=== PATIENT | female | born 2005 | race Caucasian/White ===

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

== ENCOUNTER 2024-01-01 07:00 | Outpatient (OUT) | payer OTHER, SELFPAY ==
--- NOTE | 2024-01-01 | US_ITS ---
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 Single live intrauterine with growth detailed above. Electronically authenticated by: KATIE YANEZ Date: 01/01/2024 10:19
--- NOTE | 2024-01-01 | US_ITS ---
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 BREATHING MOVEMENTS: 2 GROSS BODY MOVEMENTS: 2 TONE: 2 QUALITATIVE AMNIOTIC FLUID VOLUME: 2 PRESENTATION: CEPHALIC HEART RATE: 148.35 bpm AMNIOTIC FLUID VOLUME: 14.62 cm GESTATIONAL AGE: 38 weeks 2 days US/US OB BPP w non-stress IMPRESSION: Total biophysical profile score: 8 Electronically authenticated by: KATIE YANEZ Date: 01/01/2024 10:13
--- OUTSIDE RECORDS SUMMARY | 2024-01-01 07:03 | XMS_ITS | CCD ---
Author Organization [facility] Care Team Providers Care Cardroom Plastic Card Grader Name Role Phone Keegan, Shahnaz Rach Unavailable Unavailable Keegan, Shahnaz Rach Unavailable Unavailable Keegan, Shahnaz Rach Unavailable Unavailable Keegan, Shahnaz Rach Unavailable Unavailable Keegan, Shahnaz Rach Unavailable Unavailable Keegan, Shahnaz Rach Unavailable Unavailable Keegan, Shahnaz A Unavailable Unavailable Keegan, Shahnaz A Unavailable Unavailable RIMA Solomon Primary Care Provider JOHNOSN Caceres Emergency Provider Hue Solomon Primary Care [...] Facility (3 sources) Octacosanol Drug Allergy 08-13-2022 [facility] Work Phone: Medications Current Medications Medication Drug Class(es) Dates Sig (Normalized) Sig (Original) multivitamin (Theragran) tablet (3 sources) take 1 tablet by mouth in the morning multivitamin (Theragran) tablet Take 1 tablet by mouth in the morning. Active Shubert (No Known Home Meds) (1 source) Start: 07-17-2023 Shubert (No Known Home Meds) Active July 17, [...] UA Negative Negative - 4(70) +++ mg/dL [facility] Blood, UA Negative Negative - 50 Jason/mcL [facility] Clarity, UA Clear [facility] Color, UA Yellow [facility] Glucose, UA Negative Negative - 1999(110) ++++ mg/dL [facility] Interpretation and review of laboratory results Abnormal [facility] Ketones, UA Negative Negative - 160(16) ++++ mg/dL [facility] Leukocytes, UA Negative Negative - 500+++ Misbah/mcL [facility] Nitrite, UA Negative Negative - Positive [facility] pH, UA 5.5 5 - 9 [facility] Protein, UA Trace Negative - 1999(20) ++++ mg/dL [facility] Spec Grav, UA 1.020 1 - 1.03 [facility] Urobilinogen, UA 1.0 0.2 - 12 mg/dL [facility] Alanine aminotransferase [En zymatic activity/volume] in Serum or PlasmaOrdered By: Fili Caceres on 07-17-2023 ALT [Catalytic activity/Vol] 9 U/L Normal 7-52 [facility] Comment on above: Performed By: #### C K, CBC, HS TROP, CMP #### [facility] [address] [place] [address] [place] Albumin [Mass/volume] in Ser um or Plasma by Bromocresol green (BCG) dye binding methoOrdered By: Fili Caceres on 07-17-2023 Albumin BCG dye [Mass/Vol] 4.4 g/dL 3.5-5.7 [facility] Alkaline phosphatase [Enzyma tic activity/volume] in Serum or PlasmaOrdered By: Fili Caceres on 07-17-2023 ALP [Catalytic activity/Vol] 61 U/L Normal 34-104 [facility] Comment on above: Performed By: #### C K, CBC, HS TROP, CMP #### [facility] [address] [place] [address] [place] Aspartate aminotransferase [ Enzymatic activity/volume] in Serum or PlasmaOrdered By: Fili Caceres on 07-17-2023 AST [Catalytic activity/Vol] 17 U/L Normal 13-39 [facility] Comment on above: Performed By: #### C K, CBC, HS TROP, CMP #### [address] Automated basophil %Ordered By: Fili Caceres on 07-17-2023 Basophils/100 WBC (Bld) 0.8 % Normal . [facility] Comment on above: Performed By: #### C K, CBC, HS TROP, CMP #### [address] Automated basophil countOrde red By: Fili Caceres on 07-17-2023 Basophils (Bld) [#/Vol] 0.1 10*3/uL Normal 0.0-0.2 [facility] Comment on above: Result Comment: PERF ORMED BY: [place] [address] PATHOLOGIST STATION EXAMINER VANCE OSEGUERA M.D. Performed By: #### C K, CBC, HS TROP, CMP #### [address] Automated blood monocyte cou ntOrdered By: Fili Caceres on 07-17-2023 Monocytes (Bld) [#/Vol] 0.7 10*3/uL Normal 0.0-0.8 [facility] Comment on above: Performed By: #### C K, CBC, HS TROP, CMP #### [address] Automated eosinophil %Ordere d By: Fili Caceres on 07-17-2023 Eosinophils/100 WBC (Bld) 0.6 % Normal . [facility] Comment on above: Performed By: #### C K, CBC, HS TROP, CMP #### [address] Automated eosinophil countOr dered By: Fili Caceres on 07-17-2023 Eosinophils (Bld) [#/Vol] 0.1 10*3/uL Normal 0.0-0.45 [facility] Comment on above: Performed By: #### C K, CBC, HS TROP, CMP #### [facility] [address] Automated erythrocytes count in urine sediment (number/area)Ordered By: Fili Caceres on 07-17-2023 RBC Auto (Urine sed) [#/Area] None seen [HPF] 0-4 [facility] Automated leukocytes count i n urine sediment (number/area)Ordered By: Fili Caceres on 07-17-2023 WBC Auto (Urine sed) [#/Area] 1-2 [HPF] 0-4 [facility] Automated monocyte %Ordered By: Fili Caceres on 07-17-2023 Monocytes/100 WBC (Bld) 7.4 % Normal . [facility] Comment on above: Performed By: #### C K, CBC, HS TROP, CMP #### [address] Automated neutrophil %Ordere d By: Fili Caceres on 07-17-2023 Neutrophils/100 WBC (Bld) 76.4 % Normal . [facility] Comment on above: Performed By: #### C K, CBC, HS TROP, CMP #### [address] Automated urine color determ inationOrdered By: Fili Caceres on 07-17-2023 Color (U) Yellow Normal Yellow [facility] Comment on above: Order Comment: Name Collection Type:: Clean-Voided Midstream Performed By: #### A DDONUAPLUS #### [address] Bilirubin Test strip Ql (U)O rdered By: Fili Caceres on 07-17-2023 Bilirubin Ql (U) Negative Negative [facility] Bilirubin.total [Mass/volume ] in Serum or PlasmaOrdered By: Fili Caceres on 07-17-2023 Bilirubin [Mass/Vol] 0.5 mg/dL Normal 0.3-1.0 [facility] [place] Comment on above: Performed By: #### C K, CBC, HS TROP, CMP #### [address] Calcium [Mass/volume] in Ser um or PlasmaOrdered By: Fili Caceres on 07-17-2023 Calcium [Mass/Vol] 9.2 mg/dL Normal 8.6-10.3 [facility] Comment on above: Performed By: #### C K, CBC, HS TROP, CMP #### [address] Capillary blood glucose adeel urement by glucometer (mass/volume)Ordered By: Fili Caceres on 07-17-2023 Glucose [Mass/Vol] 88 mg/dL Normal [facility] Comment on above: Random Glucose Refer ence Range is dependent on time and content of last meal. Glucose of more than 200 mg/dL in a nonstressed, ambulatory subject supports the diagnosis of Diabetes Mellitus. Result Comment: Lucas om Glucose Reference Range is dependent on time and content of last meal. Glucose of more than 200 mg/dL in a nonstressed, ambulatory subject supports the diagnosis of Diabetes Mellitus. PERFORMED BY: [address] [place] [address] PATHOLOGIST STATION EXAMINER VANCE OSGEUERA M.D. Performed By: #### G SAWYER #### Point of Care testing , Carbon dioxide, total [Moles /volume] in Serum or PlasmaOrdered By: Fili Caceres on 07-17-2023 CO2 [Moles/Vol] 25.4 mmol/L Normal 21.0-31.0 [facility] Comment on above: Performed By: #### C K, CBC, HS TROP, CMP #### [address] Chloride [Moles/volume] in S rose or PlasmaOrdered By: Fili Caceres on 07-17-2023 Chloride [Moles/Vol] 102 mmol/L Normal 98-107 [facility] [place] Comment on above: Performed By: #### C K, CBC, HS TROP, CMP #### [address] Complete Blood Count Auto Di ffon 07-17-2023 Mean Corpuscular HGB Conc 33.8 g/dL Normal 32.0-35.0 [facility] Comment on above: Performed By: #### C K, CBC, HS TROP, CMP #### [address] Monocytes/100 WBC (Bld) 16.93 % Normal 0.00-20.00 [facility] Comment on above: Performed By: #### C K, CBC, HS TROP, CMP #### [address] NRBC% 0.1 /100{WBC} Normal 0-0.5 [facility] Comment on above: Performed By: #### C K, CBC, HS TROP, CMP #### [address] Comprehensive Metabolic Pane jayce 07-17-2023 Albumin [Mass/Vol] 4.4 g/dL Normal 3.5-5.7 [facility] Comment on above: Performed By: #### C K, CBC, HS TROP, CMP #### [address] Creatinine Clr Calc Pharmacy 118.28 Normal [facility] Comment on above: Result Comment: PERF ORMED BY: [place] [address] PATHOLOGIST STATION EXAMINER VANCE OSEGUERA M.D. Performed By: #### C K, CBC, HS TROP, CMP #### [address] GFR/1.73 sq M.predicted MDRD (S/P/Bld) [Vol rate/Area] mL/min/{1.73_m2} Normal [facility] Comment on above: Performed By: #### C K, CBC, HS TROP, CMP #### [address] Creatine kinase [Enzymatic a ctivity/volume] in Serum or PlasmaOrdered By: Fili Caceres on 07-17-2023 CK [Catalytic activity/Vol] 55 U/L Normal 30-223 [facility] Comment on above: Performed By: #### C K, CBC, HS TROP, CMP #### [facility] [address] [place] [address] [place] Creatinine [Mass/volume] in Serum or PlasmaOrdered By: Fili Caceres on 07-17-2023 Creatinine [Mass/Vol] 0.63 mg/dL Normal 0.60-1.20 [facility] Comment on above: Performed By: #### C K, CBC, HS TROP, CMP #### [place] [address] [place] Dipstick and Microscopicon 0 07-17-2023 Appearance (U) Clear Normal Clear [facility] Comment on above: Order Comment: Name Collection Type:: Clean-Voided Midstream Performed By: #### A DDONUAPLUS #### [place] [address] [place] Bacteria,Urine None Seen Normal None Seen [facility] Comment on above: Order Comment: Name Collection Type:: Clean-Voided Midstream Performed By: #### A DDONUAPLUS #### [place] [address] [place] Bilirubin,Urine Negative Normal Negative [facility] Comment on above: Order Comment: Name Collection Type:: Clean-Voided Midstream Performed By: #### A DDONUAPLUS #### [address] Glucose Ql (U) Normal Normal Normal [facility] Comment on above: Order Comment: Name Collection Type:: Clean-Voided Midstream Performed By: #### A DDONUAPLUS #### [place] [address] [place] Hyaline Casts,Urine 0-8 Normal 0-8 [facility] Comment on above: Order Comment: Name Collection Type:: Clean-Voided Midstream Result Comment: PERF ORMED BY: [place] [address] PATHOLOGIST STATION EXAMINER VANCE OSEGUERA M.D. Performed By: #### A DDONUAPLUS #### [place] [address] [place] Ketones Ql (U) Negative Normal Negative [facility] Comment on above: Order Comment: Name Collection Type:: Clean-Voided Midstream Performed By: #### A DDONUAPLUS #### [address] Leukocyte esterase Test strip Ql (U) 1+ High Negative [facility] Comment on above: Order Comment: Name Collection Type:: Clean-Voided Midstream Performed By: #### A DDONUAPLUS #### [place] [address] [place] Nitrite,Urine Negative Normal Negative [facility] Comment on above: Order Comment: Name Collection Type:: Clean-Voided Midstream Performed By: #### A DDONUAPLUS #### [address] Occult Blood,Urine Negative Normal Negative [facility] Comment on above: Order Comment: Name Collection Type:: Clean-Voided Midstream Result Comment: PERF ORMED BY: [place] [address] PATHOLOGIST STATION EXAMINER VANCE OSEGUERA M.D. Performed By: #### A DDONUAPLUS #### [place] [address] [place] Protein,Urine Negative Normal Negative [facility] Comment on above: Order Comment: Name Collection Type:: Clean-Voided Midstream Performed By: #### A DDONUAPLUS #### [place] [address] [place] RBC,Urine None Seen Normal 0-4 [facility] Comment on above: Order Comment: Name Collection Type:: Clean-Voided Midstream Performed By: #### A DDONUAPLUS #### [place] [address] [place] Specificy [place],Urine 1.016 Normal 1.001-1.030 [facility] Comment on above: Order Comment: Name Collection Type:: Clean-Voided Midstream Performed By: #### A DDONUAPLUS #### [place] [id number] [place] Squamous Epithelial Cell,Urine 3-4 High 0-2 [facility] Comment on above: Order Comment: Name Collection Type:: Clean-Voided Midstream Performed By: #### A DDONUAPLUS #### [facility] [address] [place] [address] Urobilinogen,Urine Normal Normal Normal [facility] Comment on above: Order Comment: Name Collection Type:: Clean-Voided Midstream Performed By: #### A DDONUAPLUS #### [facility] [address] [place] [address] WBC,Urine 1-2 Normal 0-4 [facility] Comment on above: Order Comment: Name Collection Type:: Clean-Voided Midstream Performed By: #### A DDONUAPLUS #### [address] ECG 12 lead ECGon 07-17-2023 ECG 12 lead ECG [facility] [place] [address] [place] [address] Electrocardiograph Report Signed Patient: Zuleyma Khan MR#: [id number] : 2005 Acct:[id number] Age/Sex: 18 / F ADM Date: 07/17/23 Loc: ER Room: Type: [facility] ER Attending Dr: Ordering Provider: [...] Confirmed by Santi DE LOS SANTOS DO ([id number]) on 07/17/2023 1:21:27 PM Referred By: Electronically Signed By:Santi DE LOS SANTOS DO Transcribed By: MUS Signed By Santi De Los Santos DO 0 07/17/23 1321 Normal [facility] Erythrocyte distribution wid th [Ratio] by Automated countOrdered By: Fiil Caceres on 07-17-2023 Erythrocyte distribution width (RBC) [Ratio] 14.8 % Normal 11.9-15.3 [facility] Comment on above: Performed By: #### C K, CBC, HS TROP, CMP #### [facility] [address] Erythrocytes [#/volume] in B lood by Automated countOrdered By: Fili Caceres on 07-17-2023 RBC (Bld) [#/Vol] 4.43 10*6/uL Normal 3.60-5.00 [facility] Comment on above: Performed By: #### C K, CBC, HS TROP, CMP #### [facility] [address] Glucose [Mass/volume] in Ser um or PlasmaOrdered By: Fili Caceres on 07-17-2023 Glucose [Mass/Vol] 59 mg/dL Low 70-100 [facility] Comment on above: ADA recommended refe rence rangeRandom Glucose Reference Range is dependent on time and content of last meal. Glucose of more than 200 mg/dL in a nonstressed, ambulatory subject supports the diagnosis of Diabetes Mellitus. Result Comment: Lucas om Glucose Reference Range is dependent on time and content of last meal. Glucose of more than 200 mg/dL in a nonstressed, ambulatory subject supports the diagnosis of Diabetes Mellitus. ADA recommended reference range Performed By: #### C K, CBC, HS TROP, CMP #### [facility] [address] [place] [address] [place] Hematocrit [Volume Fraction] of Blood by Automated countOrdered By: Fili Caceres on 07-17-2023 Hematocrit (Bld) [Volume fraction] 37.8 % Normal 34.0-46.4 [facility] Comment on above: Performed By: #### C K, CBC, HS TROP, CMP #### [facility] [address] [place] [address] [place] Hemoglobin [Mass/volume] in BloodOrdered By: Fili Caceres on 07-17-2023 Hemoglobin (Bld) [Mass/Vol] 12.8 g/dL Normal 11.8-15.4 [facility] Comment on above: Performed By: #### C K, CBC, HS TROP, CMP #### [facility] [address] Ketones Auto test strip (U) [Mass/Vol]Ordered By: Fili Caceres on 07-17-2023 Ketones (U) [Mass/Vol] Negative Negative [facility] - UrinalysisOrder ed By: Fili Caceres on 07-17-2023 Hyaline casts LM Ql (Urine sed) 0-8 [LPF] 0-8 [facility] Leukocytes [#/volume] correc luis f for nucleated erythrocytes in Blood by Automated counOrdered By: Fili Caceres on 07-17-2023 WBC corrected for nucl RBC Auto (Bld) [#/Vol] 8.8 10*3/uL 3.8-11.6 [facility] Leukocytes [#/volume] in Blo od by Automated countOrdered By: Fili Caceres on 07-17-2023 WBC (Bld) [#/Vol] 8.8 10*3/uL Normal 3.8-11.6 [facility] Comment on above: Performed By: #### C K, CBC, HS TROP, CMP #### [facility] [address] [place] [address] [place] Lymphocytes [#/volume] in Bl ood by Automated countOrdered By: Fili Caceres on 07-17-2023 Lymphocytes (Bld) [#/Vol] 1.3 10*3/uL Normal 1.00-4.8 [facility] Comment on above: Performed By: #### C K, CBC, HS TROP, CMP #### [facility] [address] [place] [address] [place] Lymphocytes/100 leukocytes i n Blood by Automated countOrdered By: Fili Caceres on 07-17-2023 Lymphocytes/100 WBC (Bld) 14.8 % Normal . [facility] Comment on above: Performed By: #### C K, CBC, HS TROP, CMP #### [facility] [address] [place] [address] [place] MCH [Entitic mass] by Automa luis f countOrdered By: Fili Caceres on 07-17-2023 MCH (RBC) [Entitic mass] 28.8 pg Normal 24.7-34.3 [facility] Comment on above: Performed By: #### C K, CBC, HS TROP, CMP #### [facility] [address] [place] [address] MCHC Auto (RBC) [Mass/Vol]Or dered By: Fili Caceres on 07-17-2023 MCHC (RBC) [Mass/Vol] 33.8 g/dL 32.0-35.0 [facility] MCV [Entitic volume] by Auto mated countOrdered By: Fili Caceres on 07-17-2023 MCV (RBC) [Entitic vol] 85.4 fL Normal 80-100 [facility] Comment on above: Performed By: #### C K, CBC, HS TROP, CMP #### [facility] [address] [place] [address] Monocyte distribution width [Entitic volume] in Blood by AutomatedOrdered By: Fili Caceres on 07-17-2023 Monocyte distribution width Auto (Bld) [Entitic vol] 16.93 % 0.00-20.00 [facility] Neutrophils [#/volume] in Bl ood by Automated countOrdered By: Fili Ccaeres on 07-17-2023 Neutrophils (Bld) [#/Vol] 6.7 10*3/uL Normal 1.8-7.7 [facility] Comment on above: Performed By: #### C K, CBC, HS TROP, CMP #### [facility] [address] [place] [address] Nitrite Test strip Ql (U)Ord ered By: Fili Caceres on 07-17-2023 Nitrite Ql (U) Negative Negative [facility] No Panel InformationOrdered By: Fili Caceres on 07-17-2023 Estimated GFR (CKD-EPI) > 60.0 mL/Min [facility] Creatinine Clearance (Chem 118.28 [facility] Nucleated erythrocytes [Pres ence] in Blood by Automated countOrdered By: Fili Caceres on 07-17-2023 Nucleated RBC Auto Ql (Bld) 0.1 /100{WBC} 0-0.5 [facility] Platelet mean volume [Entiti c volume] in Blood by Automated countOrdered By: Fili Caceres on 07-17-2023 Platelet mean volume (Bld) [Entitic vol] 9.3 fL Normal 6.3-10.7 [facility] Comment on above: Performed By: #### C K, CBC, HS TROP, CMP #### [facility] [address] Platelets [#/volume] in Bloo d by Automated countOrdered By: Fili Caceres on 07-17-2023 Platelets (Bld) [#/Vol] 234 10*3/uL Normal 150-450 [facility] Comment on above: Performed By: #### C K, CBC, HS TROP, CMP #### [address] Potassium [Moles/volume] in Serum or PlasmaOrdered By: Fili Caceres on 07-17-2023 Potassium [Moles/Vol] 3.6 mmol/L Normal 3.5-5.1 [facility] Comment on above: Performed By: #### C K, CBC, HS TROP, CMP #### [address] Protein Auto test strip (U) [Mass/Vol]Ordered By: Fili Caceres on 07-17-2023 Protein (U) [Mass/Vol] Negative Negative [facility] Protein [Mass/volume] in Ser um or PlasmaOrdered By: Fili Caceres on 07-17-2023 Protein [Mass/Vol] 7.0 g/dL Normal 6.4-8.9 [facility] Comment on above: Performed By: #### C K, CBC, HS TROP, CMP #### [address] Serum globulin measurement b y calculation (mass/volume)Ordered By: Fili Caceres on 07-17-2023 Globulin (S) [Mass/Vol] 2.6 g/dL Normal [facility] Comment on above: Performed By: #### C K, CBC, HS TROP, CMP #### [place] [address] [place] Serum or plasma albumin/glob ulin mass ratioOrdered By: Fili Caceres on 07-17-2023 Albumin/Globulin [Mass ratio] 1.7 {ratio} Normal [facility] Comment on above: Performed By: #### C K, CBC, HS TROP, CMP #### [facility] [address] [place] [address] Serum or plasma anion gap de terminationOrdered By: Fili Caceres on 07-17-2023 Anion gap [Moles/Vol] 10.2 mmol/L Normal 6.0-15.0 [facility] Comment on above: Performed By: #### C K, CBC, HS TROP, CMP #### [address] Sodium [Moles/volume] in Ser um or PlasmaOrdered By: Fili Caceres on 07-17-2023 Sodium [Moles/Vol] 134 mmol/L Low 136-145 [facility] Comment on above: Performed By: #### C K, CBC, HS TROP, CMP #### [facility] [address] [place] [address] Specific gravity Auto test s trip (U) [Rel density]Ordered By: Fili Caceres on 07-17-2023 Specific gravity (U) [Rel density] 1.016 1.001-1.030 [facility] Squamous epithelial cells de tection in urine sediment by light microscopyOrdered By: Fili Caceres on 07-17-2023 Epithelial cells.squamous LM Ql (Urine sed) 3-4 [HPF] 0-2 [facility] Troponin I High Sensitivityo n 07-17-2023 Troponin I High Sensitivity < 2.3 Normal 0.0-15.0 [facility] Comment on above: Result Comment: PERF ORMED BY: [place] [address] PATHOLOGIST STATION EXAMINER VANCE OSEGUERA M.D. Performed By: #### C K, CBC, HS TROP, CMP #### [facility] [address] [place] [address] Troponin I.cardiac [Mass/vol ume] in Serum or Plasma by Detection limit <= 0.01 ng/Ordered By: Fili Caceres on 07-17-2023 Troponin I.cardiac DL <= 0.01 ng/mL [Mass/Vol] < 2.3 pg/mL 0.0-15.0 [facility] Urea nitrogen [Mass/volume] in Serum or PlasmaOrdered By: Fili Caceres on 07-17-2023 Urea nitrogen [Mass/Vol] 10 mg/dL Normal 7-25 [facility] Comment on above: Performed By: #### C K, CBC, HS TROP, CMP #### [facility] [address] Urine bacteria detection by automated methodOrdered By: Fili Caceres on 07-17-2023 Bacteria Auto Ql (U) None seen None Seen [facility] Urine clarity by refractomet ry automatedOrdered By: Fili Caceres on 07-17-2023 Clarity Refractometry automated (U) Clear Clear [facility] Urine glucose measurement by automated test strip (mass/volume)Ordered By: Fili Caceres on 07-17-2023 Glucose Auto test strip (U) [Mass/Vol] Normal mg/dL Normal [facility] Urine hemoglobin detection b y automated test stripOrdered By: Fili Caceres on 07-17-2023 Hemoglobin Auto test strip Ql (U) Negative Negative [facility] Urine leukocyte esterase det ection by automated test stripOrdered By: Fili Caceres on 07-17-2023 Leukocyte esterase Auto test strip Ql (U) 1+ Negative [facility] Urine pH measurement by auto mated test stripOrdered By: Fili Caceres on 07-17-2023 pH (U) 7.0 [pH] Normal 5.0-9.0 [facility] Comment on above: Order Comment: Name Collection Type:: Clean-Voided Midstream Performed By: #### A DDONUAPLUS #### [facility] C[facility] [address] [place] [address] [place] Urobilinogen Auto test strip (U) [Mass/Vol]Ordered By: Fili Caceres on 07-17-2023 Urobilinogen (U) [Mass/Vol] Normal mg/dL Normal [facility] Vital Signs Date Time Vital Sign Value Performing Clinician Facility 12-24-2023 10:24-0400 Body mass index (BMI) [Ratio] 26.91 kg/m2 Connie Gildardo DO Work Phone: [facility] 12-24-2023 10:24-0400 Body weight 71.12 kg Connie Gildardo DO Work Phone: [facility] 12-24-2023 10:24-0400 Diastolic blood pressure 72 mm[Hg] Connie Gildardo DO Work Phone: [facility] 12-24-2023 10:24-0400 Systolic blood pressure 110 mm[Hg] Connie Gildardo DO Work Phone: [facility] 07-17-2023 12:32-0400 Diastolic blood pressure 73 mm[Hg] [employer] Hue Luby Work Phone: [facility] 07-17-2023 12:32-0400 Heart rate 83 /min [employer] Hue Luby Work Phone: [facility] 07-17-2023 12:32-0400 Respiratory rate 18 /min [employer] Hue Luby Work Phone: [phone] 07-17-2023 12:32-0400 SaO2% (BldA) [Mass fraction] 100 % [employer] Hue Luby Work Phone: [facility] 07-17-2023 12:32-0400 Systolic blood pressure 118 mm[Hg] [employer] Hue Luby Work Phone: [facility] 07-17-2023 10:32-0400 Body height 162.56 cm [employer] Hue Luby Work Phone: [facility] 07-17-2023 10:32-0400 Body temperature 98 [degF] [employer] Hue Luby Work Phone: [facility] 07-17-2023 10:32-0400 Body weight 52.16 kg [employer] Hue Luby Work Phone: [facility] Encounters Encounter Date Encounter Type [...] 07-17-2023 End: 07-17-2023 Emergency department patient visit [employer]-Kirstin Solomon Work Phone: [facility] Work Phone: Start: 06-24-2023 End: [...] Start: 12-24-2017 Patient encounter procedure Shahnaz Keegan [facility] Work Phone: Start: 05-21-2017 Patient encounter procedure Shahnaz Keegan [facility] Work Phone: Start: 05-21-2017 Ambulatory Shahnaz Rach Keegan Faci lity:[phone] Start: 02-19-2017 Patient encounter procedure Shahnaz Keegan MIGUEL ANGEL[facility] Work Phone: Start: 02-19-2017 Ambulatory Shahnaz Rach Keegan Faci lity:[phone] Start: 01-14-2017 Patient encounter procedure Shahnaz Keegan [facility] Work Phone: Procedures Date Procedure Procedure Detail Performing Clinician Start: 12-24-2023 Urnls dip stick/tabl et rgnt non-auto w/o micrscp Connie [employer] Work Phone: History of Bronchosc opy (Diagnostic) Shahnaz Keegan Plan of Treatment Date Care Activity Detail Author Start: 11-24-2023 Influenza vaccination Influenza Vacc ine (#1) [facility] Patient Education Syncope (faint ing) Low Blood Sugar, Adult ED [facility] Work Phone: Patient referral [facility] Work Phone: Immunizations Immunization Date Immunization Notes Care Provider [facility] 12-04-2021 meningococcal polysaccharide (groups A, C, Y and W-135) diphtheria toxoid conjugate vaccine (MCV4P) [facility] DO Work Phone: [facility] 10-22-2019 Human Papillomavirus 9-valent vaccine; Translations: [HPV, Human Papillomavirus 9-valent vaccine] [place] Keegan [facility] Work Phone: 01-12-2016 human papilloma viru s vaccine, quadrivalent [place] Keegan [facility] Work Phone: 01-12-2016 Human Papillomavirus 9-valent vaccine Connie Gildardo DO Work Phone: [facility] 01-12-2016 meningococcal polysaccharide (groups A, C, Y and W-135) diphtheria toxoid conjugate vaccine (MCV4P) [place] Keegan [facility] Work Phone: 01-12-2016 tetanus toxoid, redu shoshana diphtheria toxoid, and acellular pertussis vaccine, adsorbed [place] Keegan [facility] Work Phone: 01-10-2010 influenza, seasonal, injectable Shahnaz Keegan [facility] Work Phone: 01-10-2010 influenza, seasonal, injectable, preservative free [facility]: [facility] 01-10-2010 influenza virus vaccine, unspecified formulation [facility] Work Phone: [facility] 08-09-2009 diphtheria, tetanus toxoids and acellular pertussis vaccine Shahnaz Keegan [facility] 08-09-2009 measles, mumps and rubella virus vaccine Shahnaz Keegan [facility] 08-09-2009 poliovirus vaccine, inactivated Shahnaz Keegan [facility] 08-09-2009 varicella virus vaccine Shahnaz Vac ca [facility] 03-21-2009 novel [id number], injectable Connie Gildardo DO Work Phone: [facility] 03-21-2009 novel [id number], preservative-free, injectable Connie Gildardo DO Work Phone: [facility] 02-10-2009 hepatitis A vaccine, pediatric/adolescent dosage, 2 dose schedule Connie Gildardo DO Work Phone: [facility] 02-10-2009 hepatitis A vaccine, unspecified formulation Shahnaz Keegan [facility] Work Phone: 02-10-2009 influenza, seasonal, injectable Shahnaz Keegan [facility] Work Phone: 02-10-2009 novel [id number], injectable Connie Gildardo DO Work Phone: [facility] 02-10-2009 novel [id number], preservative-free, injectable Connie Gildardo DO Work Phone: [facility] 07-27-2008 hepatitis A vaccine, pediatric/adolescent dosage, 2 dose schedule Connie Gildrado DO Work Phone: [facility] 07-23-2008 hepatitis A vaccine, unspecified formulation Shahnaz Keegan [facility] Work Phone: 12-26-2007 influenza, seasonal, injectable Shahnaz Ke[facility] Work Phone: 12-26-2007 influenza, seasonal, injectable, preservative free Connie Gildardo DO Work Phone: [facility] 01-21-2007 influenza, seasonal, injectable Shahnaz Keegan [facility] Work Phone: 01-21-2007 influenza, seasonal, injectable, preservative free Connie Gildardo DO Work Phone: [facility] 02-05-2006 influenza, seasonal, injectable Shhanaz Keegan [facility] Work Phone: 02-05-2006 influenza, seasonal, injectable, preservative free Connie Gildardo DO Work Phone: [facility] 11-02-2005 diphtheria, tetanus toxoids and acellular pertussis vaccine Shahnaz Keegan [facility] 11-02-2005 haemophilus influenz ae type b vaccine, PRP-OMP conjugate Shahnaz Keegan [facility] Work Phone: 11-02-2005 haemophilus influenz ae type b vaccine, PRP-T conjugate Connie Gildardo DO Work Phone: [facility] 11-02-2005 pneumococcal conjuga te vaccine, 7 valent Shahnaz Keegan [facility] 07-10-2005 measles, mumps and rubella virus vaccine Shahnaz Keegan [facility] 07-10-2005 varicella virus vaccine Shahnaz Vac ca [facility] 01-24-2005 diphtheria, tetanus toxoids and acellular pertussis vaccine Shahnaz Keegan [facility] Work Phone: 01-24-2005 DTaP-hepatitis B and poliovirus vaccine [facility]: [facility] 01-24-2005 haemophilus influenz ae type b vaccine, PRP-OMP conjugate Shahnaz Keegan [facility] Work Phone: 01-24-2005 haemophilus influenz ae type b vaccine, PRP-T conjugate [facility] DO Work Phone: [facility] 01-24-2005 hepatitis B vaccine, adult dosage Shahnaz Keegan [facility] Work Phone: 01-24-2005 pneumococcal conjuga te vaccine, 7 valent Shahnaz Keegan [facility] 01-24-2005 poliovirus vaccine, inactivated Shahnaz Keegan [facility] Work Phone: 2004 diphtheria, tetanus toxoids and acellular pertussis vaccine Shahnaz Keegan [facility] Work Phone: 2004 DTaP-hepatitis B and poliovirus vaccine [facility] DO Work Phone: [facility] 2004 haemophilus influenz ae type b vaccine, PRP-OMP conjugate Shahnaz Keegan [facility] Work Phone: 2004 haemophilus influenz ae type b vaccine, PRP-T conjugate [facility] Work Phone: [facility] 2004 hepatitis B vaccine, pediatric or pediatric/adolescent dosage Connie [facility] DO Work Phone: [facility] 2004 pneumococcal conjuga te vaccine, 7 valent Shahnaz Keegan [facility] 2004 poliovirus vaccine, inactivated Shahnaz Keegan [facility] Work Phone: 2004 diphtheria, tetanus toxoids and acellular pertussis vaccine Shahnaz Keegan [facility] Work Phone: 2004 DTaP-hepatitis B and poliovirus vaccine Connie Gildardo DO Work Phone: [facility] 2004 haemophilus influenz ae type b vaccine, PRP-OMP conjugate Shahnaz Keegan [facility] Work Phone: 2004 haemophilus influenz ae type b vaccine, PRP-T conjugate Connie Gildardo DO Work Phone: [facility] 2004 hepatitis B vaccine, adult dosage Shahnaz Keegan [facility] Work Phone: 2004 hepatitis B vaccine, pediatric or pediatric/adolescent dosage Connie Gildardo DO Work Phone: [facility] 2004 pneumococcal conjuga te vaccine, 7 valent Shahnaz Keegan [facility] 2004 poliovirus vaccine, inactivated Shahnaz Keegan [facility] Work Phone: 2004 hepatitis B vaccine, adult dosage Shahnaz Keegan [facility] Work Phone: 2004 hepatitis B vaccine, pediatric or pediatric/adolescent dosage Connie Gildardo DO Work Phone: [facility] Payers Date Payer Category Payer Self-pay 2022 Unknown [employer] [id number] 2022-Present [address] [place] [address] [id number] 2022 Unknown [id number] 2004 Unknown [id number] [id number] 2004 Unknown [id number] 2.16.840.1.389987.3.579.2.1258 2004 Unknown [id number] 2.16.840.1.416623.3.579.2.1258 2004 Unknown [id number] 2.16.840.1.194062.3.579.2.1258 2004 Unknown [id number] 2.16.840.1.396714.3.579.2.1258 2004 Unknown [id number] 2.16.840.1.362997.3.579.2.1258 2004 Unknown [id number] 2.16.840.1.980051.3.579.2.1258 2004 Unknown [id number] 2.16.840.1.732347.3.579.2.1258 2004 Unknown [id number] 2.16.840.1.676175.3.579.2.1258 2004 Unknown [id number] 2.16.840.1.403951.3.579.2.1258 2004 Unknown [id number] 2.16.840.1.989440.3.579.2.1258 2004 Unknown [id number] 2.16.840.1.483248.3.579.2.1258 2004 Unknown [id number] 2.16.840.1.921243.3.579.2.1258 2004 Unknown [id number] 2.16.840.1.487308.3.579.2.1258 2004 Unknown [id number] 2.16.840.1.731156.3.579.2.1258 2004 Unknown [id number] 2.16.840.1.672267.3.579.2.1259 2004 Unknown [id number] 2.16.840.1.491070.3.579.2.1259 2004 Unknown [id number] 2.16.840.1.738441.3.579.2.1259 2004 Unknown [id number] 2.16.840.1.188570.3.579.2.1259 2004 Unknown [id number] 2.16.840.1.411341.3.579.2.1259 Unknown [id number] 2.16.840.1.640609.3.579.2.531 Social History Date Type Detail Facility Assertion Unknown if ever smoked [facility] Work Phone: Start: 04-22-2023 [facility] Start: 09-03-2022 End: 07-17-2023 Tobacco smoking status NHIS Never smoked tobacco (finding) [facility] Start: 2004 Sex Assigned At Female F [facility] Start: 09-03-2022 Tobacco use and exposure [...] to any clubs or organizations such as adventist groups, unions, fraternal or athletic groups, or [...] nursing note reviewed. Exam conducted with a radiology aide present. Vitals: Estimated body mass index is [...] Facility Evaluation note No assessment information availa [facility] Work Phone: Evaluation note Note Date [...] DATE CREATED AUTHOR AUTHOR'S ORGANIZ ATION 08/28/2023 [facility] DATE CREATED AUTHOR AUTHOR'S ORGANIZ ATION 12/25/2023 [facility] [employer] Care Teams (unrecognized sec tion and content) Team Status: Active Member Role Status Dates Hue Solomon NP-Kirstin Primary Care Provider Active Team Status: Inactive Member Role Status Dates RIMA Martínez Primary Care Provider Active S tart: July 17, 2023 End: July 17, 2023 Fili Caceres PA-C Emergency Provider Active Start: July 17, 2023 End: July 17, 2023 [employer] Relationship Specialty Start Date End Date Danielito Pickett DO [address] [place] [address] PCP - General Family Medicine 08/13/22 [employer] Relationship Specialty Start Date End Date Danielito Pickett DO [address] [place] [address] PCP - General Family Medicine 08/13/22 Goals [...] BE BASED ON THE PRIMARY CLINICAL RECORDS. [facility]. provides no warranty or guarantee of the accuracy or completeness of information in this document.
[2024-01-01 09:25] VITALS: BP 120/69; PULSE 97
== END 2024-01-01 09:54 | disposition home or self-care (01) ==
LOC: US 07:00 → FBC 08:59
PROVIDERS: Visit Provider Physician Assistant
DX: O43.112 Circumvallate placenta, second trimester (principal); Z3A.38 38 weeks gestation of pregnancy
CPT/HCPCS: 76816; 76818

== ENCOUNTER 2024-01-04 06:30 | Outpatient (OUT) | payer OTHER, SELFPAY ==
--- OUTSIDE RECORDS SUMMARY | 2023-12-17 08:29 | XMS_ITS | CCD ---
Author Organization [facility] Inform ion Partnership [facility] Care Team Providers Care Law Firm Administrator Name Role Phone Keegan, Shahnaz Rach Unavailable [...] PEREZ Attending Unavailable CONNIE PEREZ Attending Unavailable ADVID SCRUGGS Attending Unavailable Medications Current Medications Medication Drug Class(es) Dates Sig (Normalized) Sig (Original) Aniwa (No Known Home Meds) (1 source) Start: 07-17-2023 Aniwa (No Known Home Meds) Active July 17, [...] ALT [Catalytic activity/Vol] 9 U/L Normal 7-52 [facility] Comment on above: Performed By: #### C K, CBC, HS TROP, CMP #### [facility] [address] [place] [address] [place] Albumin [Mass/volume] in Ser um or Plasma by Bromocresol green (BCG) dye binding methoOrdered By: Fili Caceres on 07-17-2023 Albumin BCG dye [Mass/Vol] 4.4 g/dL 3.5-5.7 [facility] Alkaline phosphatase [Enzyma tic activity/volume] in Serum or PlasmaOrdered By: Fili Caceres on 07-17-2023 ALP [Catalytic activity/Vol] 61 U/L Normal 34-104 [facility] Comment on above: Performed By: #### C K, CBC, HS TROP, CMP #### [facility] [address] [place] [address] [place] Aspartate aminotransferase [ Enzymatic activity/volume] in Serum or PlasmaOrdered By: Fili Caceres on 07-17-2023 AST [Catalytic activity/Vol] 17 U/L Normal 13-39 [facility] Comment on above: Performed By: #### C K, CBC, HS TROP, CMP #### [facility] [address] Automated basophil %Ordered By: Fili Caceres on 07-17-2023 Basophils/100 WBC (Bld) 0.8 % Normal . [facility] Comment on above: Performed By: #### C K, CBC, HS TROP, CMP #### [facility] [address] Automated basophil countOrde red By: Fili Caceres on 07-17-2023 Basophils (Bld) [#/Vol] 0.1 10*3/uL Normal 0.0-0.2 [facility] Comment on above: Result Comment: PERF ORMED BY: [facility] [address] [place] [address] PATHOLOGIST SHOP TEACHER VANCE OSEGUERA M.D. Performed By: #### C K, CBC, HS TROP, CMP #### [facility] [address] Automated blood monocyte cou ntOrdered By: Fili Caceres on 07-17-2023 Monocytes (Bld) [#/Vol] 0.7 10*3/uL Normal 0.0-0.8 [facility] Comment on above: Performed By: #### C K, CBC, HS TROP, CMP #### [facility] [address] Automated eosinophil %Ordere d By: Fili Caceres on 07-17-2023 Eosinophils/100 WBC (Bld) 0.6 % Normal . [facility] Comment on above: Performed By: #### C K, CBC, HS TROP, CMP #### [facility] [address] Automated eosinophil countOr dered By: Fili Caceres on 07-17-2023 Eosinophils (Bld) [#/Vol] 0.1 10*3/uL Normal 0.0-0.45 [facility] Comment on above: Performed By: #### C K, CBC, HS TROP, CMP #### [facility] [address] Automated erythrocytes count in urine sediment (number/area)Ordered By: Fili Caceres on 07-17-2023 RBC Auto (Urine sed) [#/Area] None seen [HPF] 0-4 [facility] Automated leukocytes count i n urine sediment (number/area)Ordered By: Fili Caceres on 07-17-2023 WBC Auto (Urine sed) [#/Area] 1-2 [HPF] 0-4 [facility] Automated monocyte %Ordered By: Fili Caceres on 07-17-2023 Monocytes/100 WBC (Bld) 7.4 % Normal . [facility] Comment on above: Performed By: #### C K, CBC, HS TROP, CMP #### [address] Automated neutrophil %Ordere d By: Fili Caceres on 07-17-2023 Neutrophils/100 WBC (Bld) 76.4 % Normal . [facility] Comment on above: Performed By: #### C K, CBC, HS TROP, CMP #### [address] Automated urine color determ inationOrdered By: Fili Caceres on 07-17-2023 Color (U) Yellow Normal Yellow [facility] Comment on above: Order Comment: Name Collection Type:: Clean-Voided Midstream Performed By: #### A DDONUAPLUS #### [address] Bilirubin Test strip Ql (U)O rdered By: Fili Caceres on 07-17-2023 Bilirubin Ql (U) Negative Negative [facility] Bilirubin.total [Mass/volume ] in Serum or PlasmaOrdered By: Fili Caceres on 07-17-2023 Bilirubin [Mass/Vol] 0.5 mg/dL Normal 0.3-1.0 [facility] Comment on above: Performed By: #### C K, CBC, HS TROP, CMP #### [address] Calcium [Mass/volume] in Ser um or PlasmaOrdered By: Fili Caceres on 07-17-2023 Calcium [Mass/Vol] 9.2 mg/dL Normal 8.6-10.3 [facility] Comment on above: Performed By: #### C K, CBC, HS TROP, CMP #### [address] Capillary blood glucose adeel urement by glucometer (mass/volume)Ordered By: Fili Caceres on 07-17-2023 Glucose [Mass/Vol] 88 mg/dL Normal [facility] Comment on above: Random Glucose Refer ence Range is dependent on time and content of last meal. Glucose of more than 200 mg/dL in a nonstressed, ambulatory subject supports the diagnosis of Diabetes Mellitus. Result Comment: [place] [facility] Glucose Reference Range is dependent on time and content of last meal. Glucose of more than 200 mg/dL in a nonstressed, ambulatory subject supports the diagnosis of Diabetes Mellitus. PERFORMED BY: [address] [place] [address] PATHOLOGIST SHOP TEACHER VANCE OSEGUERA M.D. Performed By: #### G LUANGEL #### Point of Care testing , Carbon dioxide, total [Moles /volume] in Serum or PlasmaOrdered By: Fili Caceres on 07-17-2023 CO2 [Moles/Vol] 25.4 mmol/L Normal 21.0-31.0 [facility] Comment on above: Performed By: #### C K, CBC, HS TROP, CMP #### [address] Chloride [Moles/volume] in S rose or PlasmaOrdered By: Fili Caceres on 07-17-2023 Chloride [Moles/Vol] 102 mmol/L Normal 98-107 [facility] Comment on above: Performed By: #### C K, CBC, HS TROP, CMP #### [facility] [address] [place] [address] Complete Blood Count Auto Di ffon 07-17-2023 Mean Corpuscular HGB Conc 33.8 g/dL Normal 32.0-35.0 [facility] Comment on above: Performed By: #### C K, CBC, HS TROP, CMP #### [address] Monocytes/100 WBC (Bld) 16.93 % Normal 0.00-20.00 [facility] Comment on above: Performed By: #### C K, CBC, HS TROP, CMP #### [address] NRBC% 0.1 /100{WBC} Normal 0-0.5 [facility] Comment on above: Performed By: #### C K, CBC, HS TROP, CMP #### [address] Comprehensive Metabolic Pane jayce 07-17-2023 Albumin [Mass/Vol] 4.4 g/dL Normal 3.5-5.7 [facility] Comment on above: Performed By: #### C K, CBC, HS TROP, CMP #### [place] [address] [place] Creatinine Clr Calc Pharmacy 118.28 Normal [facility] Comment on above: Result Comment: PERF ORMED BY: [place] [address] PATHOLOGIST SHOP TEACHER VANCE OSEGUERA M.D. Performed By: #### C K, CBC, HS TROP, CMP #### [address] GFR/1.73 sq M.predicted MDRD (S/P/Bld) [Vol rate/Area] mL/min/{1.73_m2} Normal [facility] Comment on above: Performed By: #### C K, CBC, HS TROP, CMP #### [address] Creatine kinase [Enzymatic a ctivity/volume] in Serum or PlasmaOrdered By: Fili Caceres on 07-17-2023 CK [Catalytic activity/Vol] 55 U/L Normal 30-223 [facility] Comment on above: Performed By: #### C K, CBC, HS TROP, CMP #### [place] [address] [place] Creatinine [Mass/volume] in Serum or PlasmaOrdered By: Fili Caceres on 07-17-2023 Creatinine [Mass/Vol] 0.63 mg/dL Normal 0.60-1.20 [facility] Comment on above: Performed By: #### C K, CBC, HS TROP, CMP #### [facility] [address] Dipstick and Microscopicon 0 07-17-2023 Appearance (U) Clear Normal Clear [facility] Comment on above: Order Comment: Name Collection Type:: Clean-Voided Midstream Performed By: #### A DDONUAPLUS #### [address] Bacteria,Urine None Seen Normal None Seen [facility] Comment on above: Order Comment: Name Collection Type:: Clean-Voided Midstream Performed By: #### A DDONUAPLUS #### [address] Bilirubin,Urine Negative Normal Negative [facility] Comment on above: Order Comment: Name Collection Type:: Clean-Voided Midstream Performed By: #### A DDONUAPLUS #### [address] Glucose Ql (U) Normal Normal Normal [facility] Comment on above: Order Comment: Name Collection Type:: Clean-Voided Midstream Performed By: #### A DDONUAPLUS #### [address] Hyaline Casts,Urine 0-8 Normal 0-8 [facility] Comment on above: Order Comment: Name Collection Type:: Clean-Voided Midstream Result Comment: PERF ORMED BY: [place] [address] PATHOLOGIST SHOP TEACHER VANCE OSEGUERA M.D. Performed By: #### A DDONUAPLUS #### [address] Ketones Ql (U) Negative Normal Negative [facility] Comment on above: Order Comment: Name Collection Type:: Clean-Voided Midstream Performed By: #### A DDONUAPLUS #### [address] Leukocyte esterase Test strip Ql (U) 1+ High Negative [facility] Comment on above: Order Comment: Name Collection Type:: Clean-Voided Midstream Performed By: #### A DDONUAPLUS #### [place] [address] [place] Nitrite,Urine Negative Normal Negative [facility] Comment on above: Order Comment: Name Collection Type:: Clean-Voided Midstream Performed By: #### A DDONUAPLUS #### [place] [address] [place] Occult Blood,Urine Negative Normal Negative [facility] Comment on above: Order Comment: Name Collection Type:: Clean-Voided Midstream Result Comment: PERF ORMED BY: [place] [address] PATHOLOGIST SHOP TEACHER VANCE OSEGUERA M.D. Performed By: #### A DDONUAPLUS #### [place] [address] [place] Protein,Urine Negative Normal Negative [facility] Comment on above: Order Comment: Name Collection Type:: Clean-Voided Midstream Performed By: #### A DDONUAPLUS #### [address] RBC,Urine None Seen Normal 0-4 [facility] Comment on above: Order Comment: Name Collection Type:: Clean-Voided Midstream Performed By: #### A DDONUAPLUS #### [place] [address] [place] Specificy [place],Urine 1.016 Normal 1.001-1.030 [facility] Comment on above: Order Comment: Name Collection Type:: Clean-Voided Midstream Performed By: #### A DDONUAPLUS #### [place] [address] [place] Squamous Epithelial Cell,Urine 3-4 High 0-2 [facility] Comment on above: Order Comment: Name Collection Type:: Clean-Voided Midstream Performed By: #### A DDONUAPLUS #### [address] Urobilinogen,Urine Normal Normal Normal [facility] Comment on above: Order Comment: Name Collection Type:: Clean-Voided Midstream Performed By: #### A DDONUAPLUS #### [facility] [address] [place] [address] WBC,Urine 1-2 Normal 0-4 [facility] Comment on above: Order Comment: Name Collection Type:: Clean-Voided Midstream Performed By: #### A DDONUAPLUS #### [address] ECG 12 lead ECGon 07-17-2023 ECG 12 lead ECG [facility] Main Mobile [address] [place] [address] Electrocardiograph Report Signed Patient: Get Parnell MR#: [id number] : 2005 Acct:[id number] Age/Sex: 18 / F ADM Date: 07/17/23 Loc: ER Room: Type: [facility] ER Attending Dr: Ordering Provider: [...] Confirmed by Santi DE LOS SANTOS DO ([id number]) on 07/17/2023 1:21:27 PM Referred By: Electronically Signed By:Santi DE LOS SANTOS DO Transcribed By: MUS Signed By Santi De Los Santos DO 0 07/17/23 1321 Normal [facility] Erythrocyte distribution wid th [Ratio] by Automated countOrdered By: Fili Caceres on 07-17-2023 Erythrocyte distribution width (RBC) [Ratio] 14.8 % Normal 11.9-15.3 [facility] Comment on above: Performed By: #### C K, CBC, HS TROP, CMP #### [facility] [address] Erythrocytes [#/volume] in B lood by Automated countOrdered By: Fili Caceres on 07-17-2023 RBC (Bld) [#/Vol] 4.43 10*6/uL Normal 3.60-5.00 [facility] Comment on above: Performed By: #### C K, CBC, HS TROP, CMP #### [facility] [address] [place] [address] [place] Glucose [Mass/volume] in Ser um or PlasmaOrdered By: Fili Caceres on 07-17-2023 Glucose [Mass/Vol] 59 mg/dL Low 70-100 [facility] Comment on above: ADA recommended refe rence rangeRandom Glucose Reference Range is dependent on time and content of last meal. Glucose of more than 200 mg/dL in a nonstressed, ambulatory subject supports the diagnosis of Diabetes Mellitus. Result Comment: [place] [facility] Glucose Reference Range is dependent on time and content of last meal. Glucose of more than 200 mg/dL in a nonstressed, ambulatory subject supports the diagnosis of Diabetes Mellitus. ADA recommended reference range Performed By: #### C K, CBC, HS TROP, CMP #### [facility] [address] Hematocrit [Volume Fraction] of Blood by Automated countOrdered By: Fili Caceres on 07-17-2023 Hematocrit (Bld) [Volume fraction] 37.8 % Normal 34.0-46.4 [facility] Comment on above: Performed By: #### C K, CBC, HS TROP, CMP #### [facility] [address] [place] [address] [place] Hemoglobin [Mass/volume] in BloodOrdered By: Fili Caceres on 07-17-2023 Hemoglobin (Bld) [Mass/Vol] 12.8 g/dL Normal 11.8-15.4 [facility] Comment on above: Performed By: #### C K, CBC, HS TROP, CMP #### [facility] [address] Ketones Auto test strip (U) [Mass/Vol]Ordered By: Fili Caceres on 07-17-2023 Ketones (U) [Mass/Vol] Negative Negative [facility] - UrinalysisOrder ed By: iFli Caceres on 07-17-2023 Hyaline casts LM Ql (Urine sed) 0-8 [LPF] 0-8 [facility] Leukocytes [#/volume] correc luis f for nucleated erythrocytes in Blood by Automated counOrdered By: Fili Caceres on 07-17-2023 WBC corrected for nucl RBC Auto (Bld) [#/Vol] 8.8 10*3/uL 3.8-11.6 [facility] Leukocytes [#/volume] in Blo od by Automated countOrdered By: Fili Caceres on 07-17-2023 WBC (Bld) [#/Vol] 8.8 10*3/uL Normal 3.8-11.6 [facility] Comment on above: Performed By: #### C K, CBC, HS TROP, CMP #### [facility] [address] [place] [address] [place] Lymphocytes [#/volume] in Bl ood by Automated countOrdered By: Fili Caceres on 07-17-2023 Lymphocytes (Bld) [#/Vol] 1.3 10*3/uL Normal 1.00-4.8 [facility] Comment on above: Performed By: #### C K, CBC, HS TROP, CMP #### [facility] [address] [place] [address] [place] Lymphocytes/100 leukocytes i n Blood by Automated countOrdered By: Fili Caceres on 07-17-2023 Lymphocytes/100 WBC (Bld) 14.8 % Normal . [facility] Comment on above: Performed By: #### C K, CBC, HS TROP, CMP #### [facility] [address] [place] [address] [place] MCH [Entitic mass] by Automa luis f countOrdered By: Fili Caceres on 07-17-2023 MCH (RBC) [Entitic mass] 28.8 pg Normal 24.7-34.3 [facility] Comment on above: Performed By: #### C K, CBC, HS TROP, CMP #### [facility] [address] [place] [address] MCHC Auto (RBC) [Mass/Vol]Or dered By: Fili Caceres on 07-17-2023 MCHC (RBC) [Mass/Vol] 33.8 g/dL 32.0-35.0 [facility] MCV [Entitic volume] by Auto mated countOrdered By: Fili Caceres on 07-17-2023 MCV (RBC) [Entitic vol] 85.4 fL Normal 80-100 [facility] Comment on above: Performed By: #### C K, CBC, HS TROP, CMP #### [facility] [address] [place] [address] Monocyte distribution width [Entitic volume] in Blood by AutomatedOrdered By: Fili Caceres on 07-17-2023 Monocyte distribution width Auto (Bld) [Entitic vol] 16.93 % 0.00-20.00 [facility] Neutrophils [#/volume] in Bl ood by Automated countOrdered By: Fili Caceres on 07-17-2023 Neutrophils (Bld) [#/Vol] 6.7 10*3/uL Normal 1.8-7.7 [facility] Comment on above: Performed By: #### C K, CBC, HS TROP, CMP #### [facility] [address] [place] [address] Nitrite Test strip Ql (U)Ord ered By: Fili Caceres on 07-17-2023 Nitrite Ql (U) Negative Negative [facility] No Panel InformationOrdered By: Fili Caceres on 07-17-2023 Estimated GFR (CKD-EPI) > 60.0 mL/Min [facility] Creatinine Clearance (Chem 118.28 [facility] Nucleated erythrocytes [Pres ence] in Blood by Automated countOrdered By: Fili Caceres on 07-17-2023 Nucleated RBC Auto Ql (Bld) 0.1 /100{WBC} 0-0.5 [facility] Platelet mean volume [Entiti c volume] in Blood by Automated countOrdered By: Fili Caceres on 07-17-2023 Platelet mean volume (Bld) [Entitic vol] 9.3 fL Normal 6.3-10.7 [facility] Comment on above: Performed By: #### C K, CBC, HS TROP, CMP #### [facility] [address] Platelets [#/volume] in Bloo d by Automated countOrdered By: Fili Caceres on 07-17-2023 Platelets (Bld) [#/Vol] 234 10*3/uL Normal 150-450 [facility] Comment on above: Performed By: #### C K, CBC, HS TROP, CMP #### [address] Potassium [Moles/volume] in Serum or PlasmaOrdered By: Fili Caceres on 07-17-2023 Potassium [Moles/Vol] 3.6 mmol/L Normal 3.5-5.1 [facility] Comment on above: Performed By: #### C K, CBC, HS TROP, CMP #### [address] Protein Auto test strip (U) [Mass/Vol]Ordered By: Fili Caceres on 07-17-2023 Protein (U) [Mass/Vol] Negative Negative [facility] Protein [Mass/volume] in Ser um or PlasmaOrdered By: Fili Caceres on 07-17-2023 Protein [Mass/Vol] 7.0 g/dL Normal 6.4-8.9 [facility] Comment on above: Performed By: #### C K, CBC, HS TROP, CMP #### [address] Serum globulin measurement b y calculation (mass/volume)Ordered By: Fili Caceres on 07-17-2023 Globulin (S) [Mass/Vol] 2.6 g/dL Normal [facility] Comment on above: Performed By: #### C K, CBC, HS TROP, CMP #### [address] Serum or plasma albumin/glob ulin mass ratioOrdered By: Fili Caceres on 07-17-2023 Albumin/Globulin [Mass ratio] 1.7 {ratio} Normal [facility] Comment on above: Performed By: #### C K, CBC, HS TROP, CMP #### [address] Serum or plasma anion gap de terminationOrdered By: Fili Caceres on 07-17-2023 Anion gap [Moles/Vol] 10.2 mmol/L Normal 6.0-15.0 [facility] Comment on above: Performed By: #### C K, CBC, HS TROP, CMP #### [address] Sodium [Moles/volume] in Ser um or PlasmaOrdered By: Fili Caceres on 07-17-2023 Sodium [Moles/Vol] 134 mmol/L Low 136-145 [facility] Comment on above: Performed By: #### C K, CBC, HS TROP, CMP #### [address] Specific gravity Auto test s trip (U) [Rel density]Ordered By: Fili Caceres on 07-17-2023 Specific gravity (U) [Rel density] 1.016 1.001-1.030 [facility] Squamous epithelial cells de tection in urine sediment by light microscopyOrdered By: Fili Caceres on 07-17-2023 Epithelial cells.squamous LM Ql (Urine sed) 3-4 [HPF] 0-2 [facility] Troponin I High Sensitivityo n 07-17-2023 Troponin I High Sensitivity < 2.3 Normal 0.0-15.0 [facility] Comment on above: Result Comment: PERF ORMED BY: [place] [address] PATHOLOGIST SHOP TEACHER VANCE OSEGUERA M.D. Performed By: #### C K, CBC, HS TROP, CMP #### [address] Troponin I.cardiac [Mass/vol ume] in Serum or Plasma by Detection limit <= 0.01 ng/Ordered By: Fili Caceres on 07-17-2023 Troponin I.cardiac DL <= 0.01 ng/mL [Mass/Vol] < 2.3 pg/mL 0.0-15.0 [facility] Urea nitrogen [Mass/volume] in Serum or PlasmaOrdered By: Fili Caceres on 07-17-2023 Urea nitrogen [Mass/Vol] 10 mg/dL Normal 7-25 [facility] Comment on above: Performed By: #### C K, CBC, HS TROP, CMP #### [facility] [address] Urine bacteria detection by automated methodOrdered By: Fili Caceres on 07-17-2023 Bacteria Auto Ql (U) None seen None Seen [facility] Urine clarity by refractomet ry automatedOrdered By: Fili Caceres on 07-17-2023 Clarity Refractometry automated (U) Clear Clear [facility] Urine glucose measurement by automated test strip (mass/volume)Ordered By: Fili Caceres on 07-17-2023 Glucose Auto test strip (U) [Mass/Vol] Normal mg/dL Normal [facility] Urine hemoglobin detection b y automated test stripOrdered By: Fili Caceres on 07-17-2023 Hemoglobin Auto test strip Ql (U) Negative Negative [facility] Urine leukocyte esterase det ection by automated test stripOrdered By: Fili Caceres on 07-17-2023 Leukocyte esterase Auto test strip Ql (U) 1+ Negative [facility] Urine pH measurement by auto mated test stripOrdered By: Fili Caceres on 07-17-2023 pH (U) 7.0 [pH] Normal 5.0-9.0 [facility] Comment on above: Order Comment: Name Collection Type:: Clean-Voided Midstream Performed By: #### A DDONUAPLUS #### [facility] [address] [place] [address] Urobilinogen Auto test strip (U) [Mass/Vol]Ordered By: Fiil Caceres on 07-17-2023 Urobilinogen (U) [Mass/Vol] Normal mg/dL Normal [facility] Vital Signs Date Time Vital Sign Value Performing Clinician Faci lity 07-17-2023 12:32-0400 Diastolic blood pressure 73 mm[Hg] CHIEF CUSTOMER OFFICER-C Hue Luby Work Phone: [facility] 07-17-2023 12:32-0400 Heart rate 83 /min CHIEF CUSTOMER OFFICER-[employer] H[employer] Luby Work Phone: [phone] [place] [address] 07-17-2023 12:32-0400 Respiratory rate 18 /min CHIEF CUSTOMER OFFICER-[employer] H[employer] Luby Work Phone: [phone] [place] [address] 07-17-2023 12:32-0400 SaO2% (BldA) [Mass fraction] 100 % CHIEF CUSTOMER OFFICER-C Hue Luby Work Phone: [phone] [place] [address] 07-17-2023 12:32-0400 Systolic blood pressure 118 mm[Hg] CHIEF CUSTOMER OFFICER-C Hue Luby Work Phone: [phone] [address] 07-17-2023 10:32-0400 Body height 162.56 cm CHIEF CUSTOMER OFFICER-C Hue Luby Work Phone: [phone] [place] [address] 07-17-2023 10:32-0400 Body temperature 98 [degF] CHIEF CUSTOMER OFFICER-C [employer] Luby Work Phone: [phone] [place] [address] 07-17-2023 10:32-0400 Body weight 52.16 kg CHIEF CUSTOMER OFFICER-[employer] Luby Work Phone: [phone] [place] [address] Encounters Encounter Date Encounter Type Care Provider Facility Start: 12-02-2023 End: 12-02-2023 ambulatory DAVID SCRUGGS Not Available Start: 11-14-2023 End: 11-14-2023 ambulatory CONNIE CHRIS Not Available Start: 10-30-2023 End: 10-30-2023 ambulatory CONNIE CHRIS Not Available Start: 10-17-2023 End: 10-17-2023 ambulatory DAVID SCRUGGS Not Available Start: 09-19-2023 End: 09-19-2023 ambulatory CONNIE CHRIS Not Available Start: 08-21-2023 End: 08-21-2023 ambulatory HUE SLOOMON Not Available Start: 08-21-2023 End: 08-21-2023 ambulatory MICHAEL BELTRAN Not Available Start: 08-06-2023 End: 08-06-2023 ambulatory PENOLA P BELTRAN Not Available Start: 07-22-2023 End: 07-22-2023 ambulatory PENOLA P BELTRAN Not Available Start: 07-17-2023 End: 07-17-2023 Emergency department patient visit CHIEF CUSTOMER OFFICER-Kirstin Solomon Work Phone: [facility] Work Phone: Start: 06-24-2023 [...] Start: 05-21-2017 Patient encounter procedure Shahnaz Keegan [facility] Work Phone: Start: 05-21-2017 Ambulatory Shahnaz Rach Keegan Faci lity:[phone] Start: 02-19-2017 Patient encounter procedure Shahnaz Keegan [facility] Work Phone: Start: 02-19-2017 Ambulatory Shahnaz Rach Keegan Faci lity:[phone] Start: 01-14-2017 Patient encounter procedure Shahnaz Keegan [facility] Work Phone: Procedures Date Procedure Procedure Detail Performing Clinician History of Bronchoscopy (Diagnostic) Shahnaz Keegan Plan of Treatment Date Care Activity Detail Author Patient Education Syncope (faint ing) Low Blood Sugar, Adult ED [facility] Work Phone: Patient referral [facility] Work Phone: Immunizations Immunization Date Immunization Notes Care Provider Fa cility 01-13-2019 Human Papillomavirus 9-valent vaccine; Translations: [HPV, Human Papillomavirus 9-valent vaccine] Shahnaz Keegan [facility] Work Phone: 01-12-2016 human papilloma viru s vaccine, quadrivalent Shahnaz Keegan [facility] Work Phone: 01-12-2016 meningococcal polysaccharide (groups A, C, Y and W-135) diphtheria toxoid conjugate vaccine (MCV4P) [place] Keegan [facility] Work Phone: 01-12-2016 tetanus toxoid, redu shoshana diphtheria toxoid, and acellular pertussis vaccine, adsorbed Shahnaz Keegan [facility] Work Phone: 01-10-2010 influenza, seasonal, injectable Shahnaz Keegan [facility] Work Phone: 08-09-2009 diphtheria, tetanus toxoids and acellular pertussis vaccine Shahnaz Keegan [facility] Work Phone: 08-09-2009 measles, mumps and rubella virus vaccine Shahnaz Keegan [facility] Work Phone: 08-09-2009 poliovirus vaccine, inactivated Shahnaz Keegan [facility] Work Phone: 08-09-2009 varicella virus vaccine Shahnaz Vac ca [facility] Work Phone: 02-10-2009 hepatitis A vaccine, unspecified formulation Shahnaz Keegan [facility] Work Phone: 02-10-2009 influenza, seasonal, injectable Shahnaz Keegan [facility] Work Phone: 07-23-2008 hepatitis A vaccine, unspecified formulation Shahnaz Keegan [facility] Work Phone: 12-26-2007 influenza, seasonal, injectable Shahnaz Keegan [facility] Work Phone: 01-21-2007 influenza, seasonal, injectable Shahnaz Keegan [facility] Work Phone: 02-05-2006 influenza, seasonal, injectable Shahnaz Keegan [facility] Work Phone: 11-02-2005 diphtheria, tetanus toxoids and acellular pertussis vaccine Shahnaz Keegan [facility] Work Phone: 11-02-2005 haemophilus influenz ae type b vaccine, PRP-OMP conjugate Shahnaz Keegan [facility] Work Phone: 11-02-2005 pneumococcal conjuga te vaccine, [address] [facility] Work Phone: 07-10-2005 measles, mumps and rubella virus vaccine Shahnaz Keegan [facility] Work Phone: 07-10-2005 varicella virus vaccine Shahnaz Vac ca [facility] Work Phone: 01-24-2005 diphtheria, tetanus toxoids and acellular pertussis vaccine Shahnaz Keegan [facility] Work Phone: 01-24-2005 haemophilus influenz ae type b vaccine, PRP-OMP conjugate Shahnaz Keegan [facility] Work Phone: 01-24-2005 hepatitis B vaccine, adult dosage Shahnaz Keegan [facility] Work Phone: 01-24-2005 pneumococcal conjuga te vaccine, [address] [facility] Work Phone: 01-24-2005 poliovirus vaccine, inactivated Shahnaz Keegan [facility] Work Phone: 2004 diphtheria, tetanus toxoids and acellular pertussis vaccine Shahnaz Keegan [facility] Work Phone: 2004 haemophilus influenz ae type b vaccine, PRP-OMP conjugate Shahnaz Keegan [facility] Work Phone: 2004 pneumococcal conjuga te vaccine, 7 valent Shahnaz Keegan [facility] Work Phone: 2004 poliovirus vaccine, inactivated Shahnaz Keegan [facility] Work Phone: 2004 diphtheria, tetanus toxoids and acellular pertussis vaccine Shahnaz Keegan [facility] Work Phone: 2004 haemophilus influenz ae type b vaccine, PRP-OMP conjugate Shahnaz Keegan [facility] Work Phone: 2004 hepatitis B vaccine, adult dosage Shahnaz Keegan [facility] Work Phone: 2004 pneumococcal conjuga te vaccine, 7 valent Shahnaz Keegan [facility] Work Phone: 2004 poliovirus vaccine, inactivated Shahnaz Keegan [facility] Work Phone: 2004 hepatitis B vaccine, adult dosage Shahnaz Keegan [facility] Work Phone: Payers Date Payer Category Payer Self-pay 2022 Unknown [id number] 2004 Unknown [id number] 2.16.84 [id number] 2004 Unknown [id number] 2.16.84 0.1.582679.3.579.2.1258 2004 Unknown [id number] 2.16.84 0.1.136075.3.579.2.1258 2004 Unknown [id number] 2.16.84 0.1.740239.3.579.2.1258 2004 Unknown [id number] 2.16.84 0.1.499709.3.579.2.1258 2004 Unknown [id number] 2.16.84 0.1.025067.3.579.2.1258 2004 Unknown [id number] 2.16.84 0.1.251614.3.579.2.1258 2004 Unknown [id number] 2.16.84 0.1.134756.3.579.2.1258 2004 Unknown [id number] 2.16.84 0.1.372860.3.579.2.1258 2004 Unknown [id number] 2.16.84 0.1.405911.3.579.2.1258 2004 Unknown [id number] 2.16.84 0.1.647192.3.579.2.1258 2004 Unknown [id number] 2.16.84 0.1.698266.3.579.2.1258 2004 Unknown [id number] 2.16.84 0.1.484394.3.579.2.1258 2004 Unknown [id number] 2.16.84 0.1.805266.3.579.2.1258 2004 Unknown [id number] 2.16.84 0.1.286243.3.579.2.1258 2004 Unknown [id number] 2.16.84 0.1.772338.3.579.2.1258 2004 Unknown [id number] 2.16.84 0.1.058250.3.579.2.1258 2004 Unknown [id number] 2.16.84 0.1.750511.3.579.2.1259 Unknown [id number] 2.16.8 40.1.332249.3.579.2.531 Social History Date Type Detail Facility Assertion Unknown if ever smoked [facility]IG[facility]EL [facility] Work Phone: [facility] Start: 07-17-2023 Tobacco smoking stat us NHIS Never smoked tobacco (finding) [facility] Start: 2004 Sex Assigned At Female F [facility] Functional Status Date Assessment Result Facility NEGATED: Highlighted row Functional performance Functional status health issues are not documented Disease [facility] Work Phone: Mental Status Date Assessment Result Facility NEGATED: Highlighted row Cognitive function [Interpretation] Cognitive status health issues are not documented Disease [facility] Work Phone: Evaluation note Note Date & Type Note Facility Evaluation note No assessment information availa ble [facility] Work Phone: Summary Purpose Family History [...] section and content) DATE CREATED AUTHOR 09/13/2017 [facility] DATE CREATED AUTHOR AUTHOR'S ORGANIZ ATION 08/28/2023 [facility] DATE CREATED AUTHOR AUTHOR'S ORGANIZ ATION 12/03/2023 [facility] EPIC Care Teams [...] THE PRIMARY CLINICAL RECORDS. [facility] [employer] provides no warranty or guarantee of the accuracy or completeness of information in this document.
--- OUTSIDE RECORDS SUMMARY | 2024-01-04 06:33 | XMS_ITS | CCD ---
Author Organization [facility] Informat ion Partnership [facility] Care Team Providers Care Strain Technician Name Role Phone Keegan, Shahnaz Rach Unavailable Unavailable Keegan, Shahnaz Rach Unavailable Unavailable Keegan, Shahnaz Rach Unavailable Unavailable Keegan, Shahnaz Rach Unavailable Unavailable Keegan, Shahnaz Rach Unavailable Unavailable Keegan, Shahnaz Rach Unavailable Unavailable Keegan, Shahnaz A Unavailable Unavailable Keegan, Shahnaz A Unavailable Unavailable ANA SolomonC Hue Primary Care Provider JOHNSON Caceres Emergency Provider [phone] H[facility] Solomon Primary Care Unavailable Fili Caceres [...] EWING Attending Unavailable DAVID SCRUGGS Attending Unavailable Allergies Allergy Classification Reported Allergen(s) Allergy Type Date of Onset Reaction(s) Facility (3 sources) Octacosanol Drug Allergy 08-13-2022 [facility] Work Phone: Medications Current Medications Medication Drug Class(es) Dates Sig (Normalized) Sig (Original) multivitamin (Theragran) tablet (3 sources) take 1 tablet by mouth in the morning multivitamin (Theragran) tablet Take 1 tablet by mouth in the morning. Active [place] (No Known Home Meds) (1 source) Start: 07-17-2023 [place] (No Known Home Meds) Active July 17, [...] UA Negative Negative - 4(70) +++ mg/dL [facility] Blood, UA Negative Negative - 50 Jason/mcL [facility] Clarity, UA Clear [facility] Color, UA Yellow [facility] Glucose, UA Negative Negative - 1999(110) ++++ mg/dL [facility] Interpretation and review of laboratory results Abnormal [facility] Ketones, UA Negative Negative - 160(16) ++++ mg/dL [facility] Leukocytes, UA Negative Negative - 500+++ Misbah/mcL [facility] Nitrite, UA Negative Negative - Positive [facility] pH, UA 5.5 5 - 9 [facility] Protein, UA Trace Negative - 1999(20) ++++ mg/dL [facility] Spec Grav, UA 1.020 1 - 1.03 [facility] Urobilinogen, UA 1.0 0.2 - 12 mg/dL [facility] Alanine aminotransferase [En zymatic activity/volume] in Serum or PlasmaOrdered By: Fili Caceres on 07-17-2023 ALT [Catalytic activity/Vol] 9 U/L Normal 7-52 [facility] Comment on above: Performed By: #### C K, CBC, HS TROP, CMP #### [facility] [address] Albumin [Mass/volume] in Ser um or Plasma by Bromocresol green (BCG) dye binding methoOrdered By: Fili Caceres on 07-17-2023 Albumin BCG dye [Mass/Vol] 4.4 g/dL 3.5-5.7 [facility] Alkaline phosphatase [Enzyma tic activity/volume] in Serum or PlasmaOrdered By: Fili Caceres on 07-17-2023 ALP [Catalytic activity/Vol] 61 U/L Normal 34-104 [facility] Comment on above: Performed By: #### C K, CBC, HS TROP, CMP #### [facility] [address] Aspartate aminotransferase [ Enzymatic activity/volume] in Serum or PlasmaOrdered By: Fili Caceres on 07-17-2023 AST [Catalytic activity/Vol] 17 U/L Normal 13-39 [facility] Comment on above: Performed By: #### C K, CBC, HS TROP, CMP #### [address] Automated basophil %Ordered By: Fili Caceres on 07-17-2023 Basophils/100 WBC (Bld) 0.8 % Normal . [facility] Comment on above: Performed By: #### C K, CBC, HS TROP, CMP #### [address] Automated basophil countOrde red By: Fili Caceres on 07-17-2023 Basophils (Bld) [#/Vol] 0.1 10*3/uL Normal 0.0-0.2 [facility] Comment on above: Result Comment: PERF ORMED BY: [place] [address] PATHOLOGIST HASHER MACHINE OPERATOR VANCE OSEGUERA M.D. Performed By: #### C K, CBC, HS TROP, CMP #### [address] Automated blood monocyte cou ntOrdered By: Fili Caceres on 07-17-2023 Monocytes (Bld) [#/Vol] 0.7 10*3/uL Normal 0.0-0.8 [facility] Comment on above: Performed By: #### C K, CBC, HS TROP, CMP #### [address] Automated eosinophil %Ordere d By: Fili Caceres on 07-17-2023 Eosinophils/100 WBC (Bld) 0.6 % Normal . [facility] Comment on above: Performed By: #### C K, CBC, HS TROP, CMP #### [address] Automated eosinophil countOr dered By: Fili Caceres on 07-17-2023 Eosinophils (Bld) [#/Vol] 0.1 10*3/uL Normal 0.0-0.45 [facility] Comment on above: Performed By: #### C K, CBC, HS TROP, CMP #### [address] Automated erythrocytes count in urine sediment (number/area)Ordered By: Fili Caceres on 07-17-2023 RBC Auto (Urine sed) [#/Area] None seen [HPF] 0-4 [facility] Automated leukocytes count i n urine sediment (number/area)Ordered By: Fili Caceres on 07-17-2023 WBC Auto (Urine sed) [#/Area] 1-2 [HPF] 0-4 [facility] Automated monocyte %Ordered By: Fili Caceres on 07-17-2023 Monocytes/100 WBC (Bld) 7.4 % Normal . [facility] Comment on above: Performed By: #### C K, CBC, HS TROP, CMP #### [address] Automated neutrophil %Ordere d By: Fili Caceres on 07-17-2023 Neutrophils/100 WBC (Bld) 76.4 % Normal . [facility] Comment on above: Performed By: #### C K, CBC, HS TROP, CMP #### [address] Automated urine color determ inationOrdered By: Fili Caceres on 07-17-2023 Color (U) Yellow Normal Yellow [facility] Comment on above: Order Comment: Name Collection Type:: Clean-Voided Midstream Performed By: #### A DDONUAPLUS #### [address] Bilirubin Test strip Ql (U)O rdered By: Fili Caceres on 07-17-2023 Bilirubin Ql (U) Negative Negative [facility] Bilirubin.total [Mass/volume ] in Serum or PlasmaOrdered By: Fili Caceres on 07-17-2023 Bilirubin [Mass/Vol] 0.5 mg/dL Normal 0.3-1.0 [facility] Comment on above: Performed By: #### C K, CBC, HS TROP, CMP #### [facility] [address] Calcium [Mass/volume] in Ser um or PlasmaOrdered By: Fili Caceres on 07-17-2023 Calcium [Mass/Vol] 9.2 mg/dL Normal 8.6-10.3 [facility] Comment on above: Performed By: #### C K, CBC, HS TROP, CMP #### [facility] [address] Capillary blood glucose adeel urement by glucometer (mass/volume)Ordered By: Fili Caceres on 07-17-2023 Glucose [Mass/Vol] 88 mg/dL Normal [facility] Comment on above: Random Glucose Refer ence Range is dependent on time and content of last meal. Glucose of more than 200 mg/dL in a nonstressed, ambulatory subject supports the diagnosis of Diabetes Mellitus. Result Comment: [place] [facility] Glucose Reference Range is dependent on time and content of last meal. Glucose of more than 200 mg/dL in a nonstressed, ambulatory subject supports the diagnosis of Diabetes Mellitus. PERFORMED BY: [address] [place] [address] PATHOLOGIST HASHER MACHINE OPERATOR VANCE OSEGUERA M.D. Performed By: #### G SAWYER #### Point of Care testing , Carbon dioxide, total [Moles /volume] in Serum or PlasmaOrdered By: Fili Caceres on 07-17-2023 CO2 [Moles/Vol] 25.4 mmol/L Normal 21.0-31.0 [facility] Comment on above: Performed By: #### C K, CBC, HS TROP, CMP #### [facility] [address] [place] [address] [place] Chloride [Moles/volume] in S rose or PlasmaOrdered By: Fili Caceres on 07-17-2023 Chloride [Moles/Vol] 102 mmol/L Normal 98-107 [facility] Comment on above: Performed By: #### C K, CBC, HS TROP, CMP #### [address] Complete Blood Count Auto Di ffon 07-17-2023 Mean Corpuscular HGB Conc 33.8 g/dL Normal 32.0-35.0 [facility] Comment on above: Performed By: #### C K, CBC, HS TROP, CMP #### [facility] [address] [place] [address] [place] Monocytes/100 WBC (Bld) 16.93 % Normal 0.00-20.00 [facility] Comment on above: Performed By: #### C K, CBC, HS TROP, CMP #### [facility] [address] [place] [address] [place] NRBC% 0.1 /100{WBC} Normal 0-0.5 [facility] Comment on above: Performed By: #### C K, CBC, HS TROP, CMP #### [address] Comprehensive Metabolic Pane jayce 07-17-2023 Albumin [Mass/Vol] 4.4 g/dL Normal 3.5-5.7 [facility] Comment on above: Performed By: #### C K, CBC, HS TROP, CMP #### [place] [id number] [place] Creatinine Clr Calc Pharmacy 118.28 Normal [facility] Comment on above: Result Comment: PERF ORMED BY: [place] [address] PATHOLOGIST HASHER MACHINE OPERATOR VANCE OSEGUERA M.D. Performed By: #### C K, CBC, HS TROP, CMP #### [place] [id number] [place] GFR/1.73 sq M.predicted MDRD (S/P/Bld) [Vol rate/Area] mL/min/{1.73_m2} Normal [facility] Comment on above: Performed By: #### C K, CBC, HS TROP, CMP #### [place] [id number] [place] Creatine kinase [Enzymatic a ctivity/volume] in Serum or PlasmaOrdered By: Fili Caceres on 04-24-2024 CK [Catalytic activity/Vol] 55 U/L Normal 30-223 [facility] Comment on above: Performed By: #### C K, CBC, HS TROP, CMP #### [facility] [address] Creatinine [Mass/volume] in Serum or PlasmaOrdered By: Fili Caceres on 07-17-2023 Creatinine [Mass/Vol] 0.63 mg/dL Normal 0.60-1.20 [facility] Comment on above: Performed By: #### C K, CBC, HS TROP, CMP #### [facility] [address] [place] [address] [place] Dipstick and Microscopicon 0 07-17-2023 Appearance (U) Clear Normal Clear [facility] Comment on above: Order Comment: Name Collection Type:: Clean-Voided Midstream Performed By: #### A DDONUAPLUS #### [place] [id number] [place] Bacteria,Urine None Seen Normal None Seen [facility] Comment on above: Order Comment: Name Collection Type:: Clean-Voided Midstream Performed By: #### A DDONUAPLUS #### [place] [id number] [place] Bilirubin,Urine Negative Normal Negative [facility] Comment on above: Order Comment: Name Collection Type:: Clean-Voided Midstream Performed By: #### A DDONUAPLUS #### [address] Glucose Ql (U) Normal Normal Normal [facility] Comment on above: Order Comment: Name Collection Type:: Clean-Voided Midstream Performed By: #### A DDONUAPLUS #### [place] [id number] [place] Hyaline Casts,Urine 0-8 Normal 0-8 [facility] Comment on above: Order Comment: Name Collection Type:: Clean-Voided Midstream Result Comment: PERF ORMED BY: [address] [place] [address] PATHOLOGIST HASHER MACHINE OPERATOR VANCE OSEGUERA M.D. Performed By: #### A DDONUAPLUS #### [place] [id number] [place] Ketones Ql (U) Negative Normal Negative [facility] Comment on above: Order Comment: Name Collection Type:: Clean-Voided Midstream Performed By: #### A DDONUAPLUS #### [address] Leukocyte esterase Test strip Ql (U) 1+ High Negative [facility] Comment on above: Order Comment: Name Collection Type:: Clean-Voided Midstream Performed By: #### A DDONUAPLUS #### [place] [id number] [place] Nitrite,Urine Negative Normal Negative [facility] Comment on above: Order Comment: Name Collection Type:: Clean-Voided Midstream Performed By: #### A DDONUAPLUS #### [place] [id number] [place] Occult Blood,Urine Negative Normal Negative [facility] Comment on above: Order Comment: Name Collection Type:: Clean-Voided Midstream Result Comment: PERF ORMED BY: [place] [address] PATHOLOGIST HASHER MACHINE OPERATOR VANCE OSEGUERA M.D. Performed By: #### A DDONUAPLUS #### [place] [id number] [place] Protein,Urine Negative Normal Negative [facility] Comment on above: Order Comment: Name Collection Type:: Clean-Voided Midstream Performed By: #### A DDONUAPLUS #### [place] [id number] [place] RBC,Urine None Seen Normal 0-4 [facility] Comment on above: Order Comment: Name Collection Type:: Clean-Voided Midstream Performed By: #### A DDONUAPLUS #### [place] [id number] [place] Specificy Hard[place],Urine 1.016 Normal 1.001-1.030 [facility] Comment on above: Order Comment: Name Collection Type:: Clean-Voided Midstream Performed By: #### A DDONUAPLUS #### [address] Squamous Epithelial Cell,Urine 3-4 High 0-2 [facility] Comment on above: Order Comment: Name Collection Type:: Clean-Voided Midstream Performed By: #### A DDONUAPLUS #### [address] Urobilinogen,Urine Normal Normal Normal [facility] Comment on above: Order Comment: Name Collection Type:: Clean-Voided Midstream Performed By: #### A DDONUAPLUS #### [address] WBC,Urine 1-2 Normal 0-4 [facility] Comment on above: Order Comment: Name Collection Type:: Clean-Voided Midstream Performed By: #### A DDONUAPLUS #### [address] ECG 12 lead ECGon 07-17-2023 ECG 12 lead ECG [facility] [place] [address] [place] [address] Electrocardiograph Report Signed Patient: Get Parnell MR#: [id number] : 2005 Acct:[id number] Age/Sex: 18 / F ADM Date: 07/17/23 Loc: ER Room: Type: [facility] ER Attending Dr: Ordering Provider: Fili Caceres [...] Rightward axis Confirmed by Santi BROWN DO ([id number]) on 07/17/2023 1:21:27 PM Referred By: Electronically Signed By:Santi BROWN DO Transcribed By: MUS Signed By Santi Brown DO 0 07/17/23 1321 Normal [facility] Erythrocyte distribution wid th [Ratio] by Automated countOrdered By: Fili Caceres on 07-17-2023 Erythrocyte distribution width (RBC) [Ratio] 14.8 % Normal 11.9-15.3 [facility] Comment on above: Performed By: #### C K, CBC, HS TROP, CMP #### [facility] [address] [place] [address] [place] Erythrocytes [#/volume] in B lood by Automated countOrdered By: Fili Caceres on 07-17-2023 RBC (Bld) [#/Vol] 4.43 10*6/uL Normal 3.60-5.00 [facility] Comment on above: Performed By: #### C K, CBC, HS TROP, CMP #### [facility] [address] [place] [address] [place] Glucose [Mass/volume] in Ser um or PlasmaOrdered By: Fili Caceres on 07-17-2023 Glucose [Mass/Vol] 59 mg/dL Low 70-100 [facility] Comment on above: ADA recommended refe rence rangeRandom Glucose Reference Range is dependent on time and content of last meal. Glucose of more than 200 mg/dL in a nonstressed, ambulatory subject supports the diagnosis of Diabetes Mellitus. Result Comment: [place] [facility] Glucose Reference Range is dependent on time and content of last meal. Glucose of more than 200 mg/dL in a nonstressed, ambulatory subject supports the diagnosis of Diabetes Mellitus. ADA recommended reference range Performed By: #### C K, CBC, HS TROP, CMP #### [facility] [address] [place] [address] [place] Hematocrit [Volume Fraction] of Blood by Automated countOrdered By: Fili Caceres on 07-17-2023 Hematocrit (Bld) [Volume fraction] 37.8 % Normal 34.0-46.4 [facility] Comment on above: Performed By: #### C K, CBC, HS TROP, CMP #### [facility] [address] [place] [id number] [place] Hemoglobin [Mass/volume] in BloodOrdered By: Fili Caceres on 07-17-2023 Hemoglobin (Bld) [Mass/Vol] 12.8 g/dL Normal 11.8-15.4 [facility] Comment on above: Performed By: #### C K, CBC, HS TROP, CMP #### [facility] [address] Ketones Auto test strip (U) [Mass/Vol]Ordered By: Fili Caceres on 07-17-2023 Ketones (U) [Mass/Vol] Negative Negative [facility] - UrinalysisOrder ed By: Fili Caceres on 07-17-2023 Hyaline casts LM Ql (Urine sed) 0-8 [LPF] 0-8 [facility] Leukocytes [#/volume] correc luis f for nucleated erythrocytes in Blood by Automated counOrdered By: Fili Caceres on 07-17-2023 WBC corrected for nucl RBC Auto (Bld) [#/Vol] 8.8 10*3/uL 3.8-11.6 [facility] Leukocytes [#/volume] in Blo od by Automated countOrdered By: Fili Caceres on 07-17-2023 WBC (Bld) [#/Vol] 8.8 10*3/uL Normal 3.8-11.6 [facility] Comment on above: Performed By: #### C K, CBC, HS TROP, CMP #### [place] [id number] [place] Lymphocytes [#/volume] in Bl ood by Automated countOrdered By: Fili Caceres on 07-17-2023 Lymphocytes (Bld) [#/Vol] 1.3 10*3/uL Normal 1.00-4.8 [facility] Comment on above: Performed By: #### C K, CBC, HS TROP, CMP #### [facility] [address] [place] [address] [place] Lymphocytes/100 leukocytes i n Blood by Automated countOrdered By: Fili Caceres on 07-17-2023 Lymphocytes/100 WBC (Bld) 14.8 % Normal . [facility] Comment on above: Performed By: #### C K, CBC, HS TROP, CMP #### [facility] [address] MCH [Entitic mass] by Automa luis f countOrdered By: Fili Caceres on 07-17-2023 MCH (RBC) [Entitic mass] 28.8 pg Normal 24.7-34.3 [facility] Comment on above: Performed By: #### C K, CBC, HS TROP, CMP #### [facility] [address] [place] [address] MCHC Auto (RBC) [Mass/Vol]Or dered By: Fili Caceres on 07-17-2023 MCHC (RBC) [Mass/Vol] 33.8 g/dL 32.0-35.0 [facility] MCV [Entitic volume] by Auto mated countOrdered By: Fili Caceres on 07-17-2023 MCV (RBC) [Entitic vol] 85.4 fL Normal 80-100 [facility] Comment on above: Performed By: #### C K, CBC, HS TROP, CMP #### [facility] [address] [place] [address] Monocyte distribution width [Entitic volume] in Blood by AutomatedOrdered By: Fili Caceres on 07-17-2023 Monocyte distribution width Auto (Bld) [Entitic vol] 16.93 % 0.00-20.00 [facility] Neutrophils [#/volume] in Bl ood by Automated countOrdered By: Fili Caceres on 07-17-2023 Neutrophils (Bld) [#/Vol] 6.7 10*3/uL Normal 1.8-7.7 [facility] Comment on above: Performed By: #### C K, CBC, HS TROP, CMP #### [facility] [address] [place] [address] Nitrite Test strip Ql (U)Ord ered By: Fili Caceres on 07-17-2023 Nitrite Ql (U) Negative Negative [facility] No Panel InformationOrdered By: Fili Caceres on 07-17-2023 Estimated GFR (CKD-EPI) > 60.0 mL/Min [facility] Creatinine Clearance (Chem 118.28 [facility] Nucleated erythrocytes [Pres ence] in Blood by Automated countOrdered By: Fili Caceres on 07-17-2023 Nucleated RBC Auto Ql (Bld) 0.1 /100{WBC} 0-0.5 [facility] Platelet mean volume [Entiti c volume] in Blood by Automated countOrdered By: Fili Caceres on 07-17-2023 Platelet mean volume (Bld) [Entitic vol] 9.3 fL Normal 6.3-10.7 [facility] Comment on above: Performed By: #### C K, CBC, HS TROP, CMP #### [facility] [address] Platelets [#/volume] in Bloo d by Automated countOrdered By: Fili Caceres on 07-17-2023 Platelets (Bld) [#/Vol] 234 10*3/uL Normal 150-450 [facility] Comment on above: Performed By: #### C K, CBC, HS TROP, CMP #### [facility] [address] Potassium [Moles/volume] in Serum or PlasmaOrdered By: Fili Caceres on 07-17-2023 Potassium [Moles/Vol] 3.6 mmol/L Normal 3.5-5.1 [facility] Comment on above: Performed By: #### C K, CBC, HS TROP, CMP #### [facility] [address] Protein Auto test strip (U) [Mass/Vol]Ordered By: Fili Caceres on 07-17-2023 Protein (U) [Mass/Vol] Negative Negative [facility] Protein [Mass/volume] in Ser um or PlasmaOrdered By: Fili Caceres on 07-17-2023 Protein [Mass/Vol] 7.0 g/dL Normal 6.4-8.9 [facility] Comment on above: Performed By: #### C K, CBC, HS TROP, CMP #### [facility] [address] Serum globulin measurement b y calculation (mass/volume)Ordered By: Fili Caceres on 07-17-2023 Globulin (S) [Mass/Vol] 2.6 g/dL Normal [facility] Comment on above: Performed By: #### C K, CBC, HS TROP, CMP #### [facility] [address] [place] [address] Serum or plasma albumin/glob ulin mass ratioOrdered By: Fili Caceres on 07-17-2023 Albumin/Globulin [Mass ratio] 1.7 {ratio} Normal [facility] Comment on above: Performed By: #### C K, CBC, HS TROP, CMP #### [facility] [address] [place] [address] Serum or plasma anion gap de terminationOrdered By: Fili Caceres on 07-17-2023 Anion gap [Moles/Vol] 10.2 mmol/L Normal 6.0-15.[address] [facility] Comment on above: Performed By: #### C K, CBC, HS TROP, CMP #### [address] Sodium [Moles/volume] in Ser um or PlasmaOrdered By: Fili Caceres on 07-17-2023 Sodium [Moles/Vol] 134 mmol/L Low 136-145 [facility] Comment on above: Performed By: #### C K, CBC, HS TROP, CMP #### [facility] [address] [place] [address] Specific gravity Auto test s trip (U) [Rel density]Ordered By: Fili Caceres on 07-17-2023 Specific gravity (U) [Rel density] 1.016 1.001-1.030 [facility] Squamous epithelial cells de tection in urine sediment by light microscopyOrdered By: Fili Caceres on 07-17-2023 Epithelial cells.squamous LM Ql (Urine sed) 3-4 [HPF] 0-2 [facility] Troponin I High Sensitivityo n 07-17-2023 Troponin I High Sensitivity < 2.3 Normal 0.0-15.0 [facility] Comment on above: Result Comment: PERF ORMED BY: [place] [address] PATHOLOGIST HASHER MACHINE OPERATOR VANCE OSEGUERA M.D. Performed By: #### C K, CBC, HS TROP, CMP #### [facility] [address] [place] [address] [place] Troponin I.cardiac [Mass/vol ume] in Serum or Plasma by Detection limit <= 0.01 ng/Ordered By: Fili Caceres on 07-17-2023 Troponin I.cardiac DL <= 0.01 ng/mL [Mass/Vol] < 2.3 pg/mL 0.0-15.0 [facility] Urea nitrogen [Mass/volume] in Serum or PlasmaOrdered By: Fili Caceres on 07-17-2023 Urea nitrogen [Mass/Vol] 10 mg/dL Normal 7-25 [facility] Comment on above: Performed By: #### C K, CBC, HS TROP, CMP #### [facility] [address] Urine bacteria detection by automated methodOrdered By: Fili Caceres on 07-17-2023 Bacteria Auto Ql (U) None seen None Seen [facility] Urine clarity by refractomet ry automatedOrdered By: Fili Caceres on 07-17-2023 Clarity Refractometry automated (U) Clear Clear [facility] Urine glucose measurement by automated test strip (mass/volume)Ordered By: Fili Caceres on 07-17-2023 Glucose Auto test strip (U) [Mass/Vol] Normal mg/dL Normal [facility] Urine hemoglobin detection b y automated test stripOrdered By: Fili Caceres on 07-17-2023 Hemoglobin Auto test strip Ql (U) Negative Negative [facility] Urine leukocyte esterase det ection by automated test stripOrdered By: Fili Caceres on 07-17-2023 Leukocyte esterase Auto test strip Ql (U) 1+ Negative [facility] Urine pH measurement by auto mated test stripOrdered By: Fili Caceres on 07-17-2023 pH (U) 7.0 [pH] Normal 5.0-9.0 [facility] Comment on above: Order Comment: Name Collection Type:: Clean-Voided Midstream Performed By: #### A DDONUAPLUS #### [facility] [address] [place] [address] Urobilinogen Auto test strip (U) [Mass/Vol]Ordered By: Fili Caceres on 07-17-2023 Urobilinogen (U) [Mass/Vol] Normal mg/dL Normal [facility] Vital Signs Date Time Vital Sign Value Performing Clinician Facility 12-24-2023 10:24-0400 Body mass index (BMI) [Ratio] 26.91 kg/m2 Connie Gildardo DO Work Phone: [facility] 12-24-2023 10:24-0400 Body weight 71.12 kg Connie Gildardo DO Work Phone: [facility] 12-24-2023 10:24-0400 Diastolic blood pressure 72 mm[Hg] Connie Gildardo DO Work Phone: [facility] 12-24-2023 10:24-0400 Systolic blood pressure 110 mm[Hg] Connie Gildardo DO Work Phone: [facility] 07-17-2023 12:32-0400 Diastolic blood pressure 73 mm[Hg] FOILING MACHINE OPERATOR-C Hue Luby Work Phone: [facility] 07-17-2023 12:32-0400 Heart rate 83 /min FOILING MACHINE OPERATOR-C Hue Luby Work Phone: [phone] [place] [address] 07-17-2023 12:32-0400 Respiratory rate 18 /min FOILING MACHINE OPERATOR-C Hue Luby Work Phone: [facility] 07-17-2023 12:32-0400 SaO2% (BldA) [Mass fraction] 100 % FOILING MACHINE OPERATOR-C Hue Luby Work Phone: [facility] 07-17-2023 12:32-0400 Systolic blood pressure 118 mm[Hg] FOILING MACHINE OPERATOR-C Hue Luby Work Phone: [facility] 07-17-2023 10:32-0400 Body height 162.56 cm FOILING MACHINE OPERATOR-C Hue Luby Work Phone: [facility] 07-17-2023 10:32-0400 Body temperature 98 [degF] FOILING MACHINE OPERATOR-C Hue Luby Work Phone: [facility] 07-17-2023 10:32-0400 Body weight 52.16 kg FOILING MACHINE OPERATOR-Kirstin Solomon Work Phone: [facility] Encounters Encounter Date Encounter Type Care Provider Facility Start: 12-31-2023 End: 12-31-2023 ambulatory DAVID SHEBA Not Available Start: 12-24-2023 End: 12-24-2023 Bamboo flowsheet Connie [...] 07-17-2023 End: 07-17-2023 Emergency department patient visit FOILING MACHINE OPERATOR-Kirstin Solomon Work Phone: [facility] Work Phone: Start: 06-24-2023 End: [...] Start: 02-19-2017 Patient encounter procedure Shahnaz Keegan [facility] Work Phone: Start: 02-19-2017 Ambulatory Shahnaz Rach Keegan Faci lity:[phone] Start: 01-14-2017 Patient encounter procedure Shahnaz Keegan [facility] Work Phone: Procedures Date Procedure Procedure Detail Performing Clinician Start: 12-24-2023 Urnls dip stick/tabl et rgnt non-auto w/o micrscp Connie Gildardo DO Work Phone: History of Bronchosc opy (Diagnostic) Shahnaz Keegan Plan of Treatment Date Care Activity Detail Author Start: 11-24-2023 Influenza vaccination Influenza Vacc ine (#1) [facility] Patient Education Syncope (faint ing) Low Blood Sugar, Adult ED [facility] Work Phone: Patient referral [facility] Work Phone: Immunizations Immunization Date Immunization Notes Care Provider Fa cility 12-04-2021 meningococcal polysaccharide (groups A, C, Y and W-135) diphtheria toxoid conjugate vaccine (MCV4P) [facility] DO Work Phone: [facility] 01-13-2019 Human Papillomavirus 9-valent vaccine; Translations: [HPV, Human Papillomavirus 9-valent vaccine] Shahnaz Keegan [facility] Work Phone: 01-12-2016 human papilloma viru s vaccine, quadrivalent [place] Keegan [facility] Work Phone: 01-12-2016 Human [facility] 01-12-2016 meningococcal polysaccharide (groups A, C, Y and W-135) diphtheria toxoid conjugate vaccine (MCV4P) [place] Keegan [facility] Work Phone: 01-12-2016 tetanus toxoid, redu shoshana diphtheria toxoid, and acellular pertussis vaccine, adsorbed [facility]: 01-10-2010 influenza, seasonal, injectable Shahnaz Keegan [facility] Work Phone: 01-10-2010 influenza, seasonal, injectable, preservative free [facility] DO Work Phone: [facility] 01-10-2010 influenza virus vaccine, unspecified formulation [facility] 08-09-2009 diphtheria, tetanus toxoids and acellular pertussis vaccine Shahnaz Keegan [facility] 08-09-2009 measles, mumps and rubella virus vaccine Shahnaz Keegan [facility] 08-09-2009 poliovirus vaccine, inactivated Shahnaz Keegan [facility] 08-09-2009 varicella virus vaccine Shahnaz Vac ca [facility] 03-21-2009 novel [id number], injectable [facility] 03-21-2009 novel [id number], preservative-free, injectable Connie Gildardo DO Work Phone: [facility] 02-10-2009 hepatitis A vaccine, pediatric/adolescent dosage, 2 dose schedule Connie Gildardo DO Work Phone: [facility] 02-10-2009 hepatitis A vaccine, unspecified formulation Shahnaz Keegan [facility] Work Phone: 02-10-2009 influenza, seasonal, injectable Shahnaz Keegan [facility] Work Phone: 02-10-2009 novel [id number], injectable Connie Gildardo DO Work Phone: [facility] 02-10-2009 novel [id number], preservative-free, injectable Connie Gildardo DO Work Phone: [facility] 07-27-2008 hepatitis A vaccine, pediatric/adolescent dosage, 2 dose schedule Connie Gildardo DO Work Phone: [facility] 07-23-2008 hepatitis A vaccine, unspecified formulation Shahnaz Keegan [facility] Work Phone: 12-26-2007 influenza, seasonal, injectable Shahnaz Keegan [facility] Work Phone: 12-26-2007 influenza, seasonal, injectable, preservative free Connie Gildardo DO Work Phone: [facility] 01-21-2007 influenza, seasonal, injectable Shahnaz Keegan [facility] Work Phone: 01-21-2007 influenza, seasonal, injectable, preservative free Connie Gildardo DO Work Phone: [facility] 02-05-2006 influenza, seasonal, injectable Shahnaz Keegan [facility] Work Phone: 02-05-2006 influenza, seasonal, injectable, preservative free Connie Gildardo DO Work Phone: [facility] 11-02-2005 diphtheria, tetanus toxoids and acellular pertussis vaccine Shahnaz Keegan [facility] 11-02-2005 haemophilus influenz ae type b vaccine, PRP-OMP conjugate Shahnaz Keegan [facility] Work Phone: 11-02-2005 haemophilus influenz ae type b vaccine, PRP-T conjugate Connie Gildardo DO Work Phone: [facility] 11-02-2005 pneumococcal conjuga te vaccine, 7 valent Shahnaz Keegan [facility] 07-10-2005 measles, mumps and rubella virus vaccine Shahnaz Keegan [facility] 07-10-2005 varicella virus vaccine Shahnaz Vac ca [facility] 01-24-2005 diphtheria, tetanus toxoids and acellular pertussis vaccine Shahnaz Keegan [facility] Work Phone: 01-24-2005 DTaP-hepatitis B and poliovirus vaccine [facility] Gildardo DO Work Phone: [facility] 01-24-2005 haemophilus influenz ae type b vaccine, PRP-OMP conjugate Shahnaz Keegan [facility] Work Phone: 01-24-2005 haemophilus influenz ae type b vaccine, PRP-T conjugate [facility] 01-24-2005 hepatitis B vaccine, adult dosage Shahnaz Keegan [facility] Work Phone: 01-24-2005 pneumococcal conjuga te vaccine, 7 valent Shahnaz Keegan [facility] 01-24-2005 poliovirus vaccine, inactivated Shahnaz Keegan [facility] Work Phone: 2004 diphtheria, tetanus toxoids and acellular pertussis vaccine Shahnaz Keegan [facility] Work Phone: 2004 DTaP-hepatitis B and poliovirus vaccine [facility] Gildardo DO Work Phone: [facility] 2004 haemophilus influenz ae type b vaccine, PRP-OMP conjugate Shahnaz Keegan [facility] Work Phone: 2004 haemophilus influenz ae type b vaccine, PRP-T conjugate Connie Gildardo DO Work Phone: [facility] 2004 hepatitis B vaccine, pediatric or pediatric/adolescent dosage Connie Gildardo DO Work Phone: [facility] 2004 pneumococcal conjuga te vaccine, 7 valent Shahnaz Keegan [facility] 2004 poliovirus vaccine, inactivated Shahnaz Keegan [facility] Work Phone: 2004 diphtheria, tetanus toxoids and acellular pertussis vaccine Shahnaz Keegan [facility] Work Phone: 2004 DTaP-hepatitis B and poliovirus vaccine Connie Gildardo DO Work Phone: [facility] 2004 haemophilus influenz ae type b vaccine, PRP-OMP conjugate Shahnaz Keegan [facility] Work Phone: 2004 haemophilus influenz ae type b vaccine, PRP-T conjugate Connie Gildardo DO Work Phone: [facility] 2004 hepatitis B vaccine, adult dosage Shahnaz Keegan [facility] Work Phone: 2004 hepatitis B vaccine, pediatric or pediatric/adolescent dosage Connie Gildardo DO Work Phone: [facility] 2004 pneumococcal conjuga te vaccine, 7 valent Shahnaz Keegan [facility] 2004 poliovirus vaccine, inactivated Shahnaz Keegan [facility] Work Phone: 2004 hepatitis B vaccine, adult dosage Shahnaz Keegan [facility] Work Phone: 2004 hepatitis B vaccine, pediatric or pediatric/adolescent dosage Connie Gildardo DO Work Phone: [facility] Payers Date Payer Category Payer Self-pay 2022 Unknown [employer] [id number] 2022-Present [address] [place] [address] [id number] 2022 Unknown [id number] 2004 Unknown [id number] [id number] 2004 Unknown [id number] 2.16.840.1.969588.3.579.2.1258 2004 Unknown [id number] 2.16.840.1.770485.3.579.2.1258 2004 Unknown [id number] 2.16.840.1.412123.3.579.2.1258 2004 Unknown [id number] 2.16840.1.561841.3.579.2.1258 2004 Unknown [id number] 2.16.840.1.312754.3.579.2.1258 2004 Unknown [id number] 2.16.840.1.412872.3.579.2.1258 2004 Unknown [id number] 2.16.840.1.748049.3.579.2.1258 2004 Unknown [id number] 2.16.840.1.632505.3.579.2.1258 2004 Unknown [id number] 2.16.840.1.623466.3.579.2.1258 2004 Unknown [id number] 2.16.840.1.671944.3.579.2.1258 2004 Unknown [id number] 2.16.840.1.566361.3.579.2.1258 2004 Unknown [id number] 2.16.840.1.034149.3.579.2.1258 2004 Unknown [id number] 2.16.840.1.761043.3.579.2.1259 2004 Unknown [id number] 2.16.840.1.990487.3.579.2.9 2004 Unknown [id number] 2.16.840.1.996365.3.579.2.9 2004 Unknown [id number] 2.16.840.1.135681.3.579.2.1258 2004 Unknown [id number] 2.16.840.1.720249.3.579.2.9 2004 Unknown [id number] 2.16.840.1.369337.3.579.2.9 2004 Unknown [id number] 2.16.840.1.998035.3.579.2.9 2004 Unknown [id number] 2.16.840.1.635368.3.579.2.125 Unknown [id number] 2.16.840.1.774828.3.579.2.531 Social History Date Type Detail Facility Assertion Unknown if ever smoked [facility] Work Phone: Start: 04-22-2023 [facility] Start: 09-03-2022 End: 07-17-2023 Tobacco smoking status NHIS Never smoked tobacco (finding) [facility] Start: 2004 Sex Assigned At Female F [facility] Start: 09-03-2022 Tobacco use and exposure [...] to any clubs or organizations such as oriental orthodox groups, unions, fraternal or athletic groups, or [...] status health issues are not documented [facility] Work [facility]: History of Present illness Narrative 12-24-2023 Natty Vega LPN - 12/24/2023 9:30 AM EDT Note Date & Type Note Facility 12-24-2023 History of Presen t illness Narrative Reason for Appointment: Patient ID: Get Parnell is a 18 y.o. female who presents [...] nursing note reviewed. Exam conducted with a bid clerk present. Vitals: Estimated body mass index is [...] Connie Ewing DO documented in this encounter [facility] Evaluation note Note Date & Type Note Facility Evaluation note No assessment information availa [facility] Work Phone: Evaluation note [...] section and content) DATE CREATED AUTHOR 09/13/2017 [facility] DATE CREATED AUTHOR AUTHOR'S ORGANIZ ATION 08/28/2023 [facility] DATE CREATED AUTHOR AUTHOR'S ORGANIZ ATION 01/01/2024 [facility] EPIC Care Teams (unrecognized sec tion and content) Team Status: Active Member Role Status Dates RIMA Martínez Primary Care Provider Active Team Status: Inactive Member Role Status Dates RIMA Martínez Primary Care Provider Active S tart: July 17, 2023 End: July 17, 2023 Fili Caceres PA-C Emergency Provider Active Start: July 17, 2023 End: July 17, 2023 Strain Technician Relationship Specialty Start Date End Date Danielito Pickett DO [address] [place] [address] PCP - General Family Medicine 08/13/22 Strain Technician Relationship Specialty Start Date End Date Danielito Pickett DO [address] [place] [address] PCP - General Family Medicine 08/13/22 Goals [...] BE BASED ON THE PRIMARY CLINICAL RECORDS. [employer] provides no warranty or guarantee of the accuracy or completeness of information in this document.
[2024-01-04 09:16] VITALS: BP 123/64; PULSE 93
== END 2024-01-04 09:40 | disposition home or self-care (01) ==
LOC: FBCO 06:30 → FBC 09:07
PROVIDERS: Visit Provider Obstetrics & Gynecology
DX: O43.899 Other placental disorders, unspecified trimester (principal)
CPT/HCPCS: 59025

== ENCOUNTER 2024-01-08 05:03 | Inpatient (IN) | payer OTHER, SELFPAY ==
[2024-01-08] VITALS (34 sets, daily range): BP systolic 107–140; BP diastolic 55–84; PULSE 69–104; TEMP 36.4–36.9
--- OUTSIDE RECORDS SUMMARY | 2024-01-08 05:08 | XMS_ITS | CCD ---
Author Organization [facility] CliniSymn Care Team Providers Care Lounge Car Attendant Name Role Phone Keegan, Shahnaz Rach Unavailable [...] SOLOMON Attending Unavailable DANIELITO PICKETT Referring Unavailable RUBY, MICHAEL P Attending Unavailable RUBY, NAVEEDOLA P Attending Unavailable RUBY, PENOLA P Attending Unavailable RUBY, PENOLA P Attending Unavailable MICHAEL BELTRAN P Attending Unavailable HUE SOLOMON Attending Unavailable DANIELITO PICKETT Referring Unavailable CONNIE EWING Attending Unavailable ROXANA SCRUGGS Attending Unavailable GILDARDO, CONNIE Attending Unavailable GILDARDO, CONNIE Attending Unavailable ROXANA SCRUGGS Attending Unavailable GILDARDO, CONNIE Attending Unavailable RAFAT EWINGY Attending Unavailable ROXANA SCRUGGS Attending Unavailable Allergies Allergy Classification Reported Allergen(s) Allergy Type Date of Onset Reaction(s) Facility (6 sources) Octacosanol Drug Allergy 08-13-2022 [facility] Work Phone: Medications Current Medications Medication Drug Class(es) Dates Sig (Normalized) Sig (Original) multivitamin (Theragran) tablet (6 sources) take 1 tablet by mouth in the morning multivitamin (Theragran) tablet Take 1 tablet by mouth in the morning. Active [place] (No Known Home Meds) (1 source) Start: 07-17-2023 [place] (No Known Home Meds) Active July 17, [...] Problem Date Documented Date Episodic/Chronic Anxiety disorders (6 sources) Anxiety; Translations: [Anxiety disorder, unspecified] Onset: 08-13-2022 08-13-2022 Chronic Asthma (1 source) Exercise-induced asthma; Translations: [Exercise-induced asthma] Chronic Attention-deficit conduct and disruptive behavior disorders (8 sources) Attention deficit hyperactivity disorder, predominantly inattentive type; Translations: [Attention-deficit hyperactivity disorder, predominantly inattentive type] Onset: 12-20-2022 12-20-2022 Chronic Blindness and vision defects (2 sources) Wears glasses; Translations: [History of Wears glasses] Episodic Menstrual disorders (6 sources) Irregular periods; Translations: [Irregular menstruation, unspecified] Onset: 08-13-2022 08-13-2022 Chronic Open wounds of head; neck; and trunk (1 source) Laceration of nose; Translations: [Laceration without foreign body of nose, initial encounter] 03-06-2023 Episodic Other complications of (6 sources) Placenta circumvallata; 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, second trimester] Onset: 11-14-2023 11-14-2023 Episodic Other endocrine disorders (1 source) Hypoglycemia; Translations: [Hypoglycemia, unspecified] 07-17-2023 Chronic Other and delivery including normal (4 sources) Third trimester ; Translations: [Encounter for supervision of normal , unspecified, third trimester] 12-24-2023 Episodic Residual codes; unclassified (2 sources) Gestation period, 37 weeks; Translations: [37 weeks gestation of ] 12-24-2023 Episodic Residual codes; unclassified (2 sources) Gestation period, 38 weeks; Translations: [38 weeks gestation of ] 12-31-2023 Episodic Syncope (2 sources) Syncope; Translations: [Syncope and collapse] Onset: 07-17-2023 07-17-2023 Episodic Past or Other Problems Problem Classification Problem Date Documented Da te Episodic/Chronic Skull and face fractures (9 sources) Fracture of zygomatic process; Translations: [Closed [...] Range Facility Urinalysis macro (dipstick) panel (U)on 12-31-2023 Bilirubin, UA Negative Negative - 4(70) +++ mg/dL [facility] Blood, UA Negative Negative - 50 Jason/mcL [facility] Clarity, UA Clear [facility] Color, UA Yellow [facility] Glucose, UA Negative Negative - 1999(110) ++++ mg/dL [facility] Interpretation and review of laboratory results Normal [facility] Ketones, UA Negative Negative - 160(16) ++++ mg/dL [facility] Leukocytes, UA Negative Negative - 500+++ Misbah/mcL [facility] Nitrite, UA Negative Negative - Positive [facility] pH, UA 8.5 5 - 9 [facility] Protein, UA Negative Negative - 1999(20) ++++ mg/dL [facility] Spec Grav, UA 1.015 1 - 1.03 [facility] Urobilinogen, UA 0.2 0.2 - 12 mg/dL [facility] Urinalysis macro (dipstick) panel (U)on 12-24-2023 Bilirubin, UA Negative Negative - 4(70) +++ mg/dL [facility] Blood, UA Negative Negative - 50 Jason/mcL [facility] Clarity, UA Clear [facility] Color, UA Yellow [facility] Glucose, UA Negative Negative - 1999(110) ++++ mg/dL [facility] Interpretation and review of laboratory results Abnormal [facility] Ketones, UA Negative Negative - 160(16) ++++ mg/dL [facility] Leukocytes, UA Negative Negative - 500+++ Misbah/mcL [facility] Nitrite, UA Negative Negative - Positive [facility] pH, UA 5.5 5 - 9 [facility] Protein, UA Trace Negative - 1999(20) ++++ mg/dL [facility] Spec Grav, UA 1.020 1 - 1.03 [facility] Urobilinogen, UA 1.0 0.2 - 12 mg/dL [facility] Alanine aminotransferase [En zymatic activity/volume] in Serum or PlasmaOrdered By: Fili Caceres on 07-17-2023 ALT [Catalytic activity/Vol] 9 U/L Normal 7-52 [facility] Comment on above: Performed By: #### C K, CBC, HS TROP, CMP #### [address] Albumin [Mass/volume] in Ser um or Plasma by Bromocresol green (BCG) dye binding methoOrdered By: Fili Caceres on 07-17-2023 Albumin BCG dye [Mass/Vol] 4.4 g/dL 3.5-5.7 [facility] Alkaline phosphatase [Enzyma tic activity/volume] in Serum or PlasmaOrdered By: Fili Caceres on 07-17-2023 ALP [Catalytic activity/Vol] 61 U/L Normal 34-104 [facility] Comment on above: Performed By: #### C K, CBC, HS TROP, CMP #### [address] Aspartate aminotransferase [ Enzymatic activity/volume] in Serum or PlasmaOrdered By: Fili Caceres on 07-17-2023 AST [Catalytic activity/Vol] 17 U/L Normal 13-39 [facility] Comment on above: Performed By: #### C K, CBC, HS TROP, CMP #### [address] Automated basophil %Ordered By: Fili Caceres on 07-17-2023 Basophils/100 WBC (Bld) 0.8 % Normal . [facility] Comment on above: Performed By: #### C K, CBC, HS TROP, CMP #### [address] Automated basophil countOrde red By: Fili Caceres on 07-17-2023 Basophils (Bld) [#/Vol] 0.1 10*3/uL Normal 0.0-0.2 [facility] Comment on above: Result Comment: PERF ORMED BY: [place] [address] PATHOLOGIST CURRICULUM SUPERVISOR VANCE OSEGUERA M.D. Performed By: #### C K, CBC, HS TROP, CMP #### [facility] [address] Automated blood monocyte cou ntOrdered By: Fili Caceres on 07-17-2023 Monocytes (Bld) [#/Vol] 0.7 10*3/uL Normal 0.0-0.8 [facility] Comment on above: Performed By: #### C K, CBC, HS TROP, CMP #### [facility] [address] Automated eosinophil %Ordere d By: Fili Caceres on 07-17-2023 Eosinophils/100 WBC (Bld) 0.6 % Normal . [facility] Comment on above: Performed By: #### C K, CBC, HS TROP, CMP #### [address] Automated eosinophil countOr dered By: Fili Caceres on 07-17-2023 Eosinophils (Bld) [#/Vol] 0.1 10*3/uL Normal 0.0-0.45 [facility] Comment on above: Performed By: #### C K, CBC, HS TROP, CMP #### [address] Automated erythrocytes count in urine sediment (number/area)Ordered By: Fili Caceres on 07-17-2023 RBC Auto (Urine sed) [#/Area] None seen [HPF] 0-4 [facility] Automated leukocytes count i n urine sediment (number/area)Ordered By: Fili Caceres on 07-17-2023 WBC Auto (Urine sed) [#/Area] 1-2 [HPF] 0-4 [facility] Automated monocyte %Ordered By: Fili Caceres on 07-17-2023 Monocytes/100 WBC (Bld) 7.4 % Normal . [facility] Comment on above: Performed By: #### C K, CBC, HS TROP, CMP #### [address] Automated neutrophil %Ordere d By: Fili Caceres on 07-17-2023 Neutrophils/100 WBC (Bld) 76.4 % Normal . [facility] Comment on above: Performed By: #### C K, CBC, HS TROP, CMP #### [facility] [address] Automated urine color determ inationOrdered By: Fili Caceres on 07-17-2023 Color (U) Yellow Normal Yellow [facility] Comment on above: Order Comment: Name Collection Type:: Clean-Voided Midstream Performed By: #### A DDONUAPLUS #### [facility] [address] Bilirubin Test strip Ql (U)O rdered By: Fili Caceres on 07-17-2023 Bilirubin Ql (U) Negative Negative [facility] Bilirubin.total [Mass/volume ] in Serum or PlasmaOrdered By: Fili Caceres on 07-17-2023 Bilirubin [Mass/Vol] 0.5 mg/dL Normal 0.3-1.0 [facility] Comment on above: Performed By: #### C K, CBC, HS TROP, CMP #### [address] Calcium [Mass/volume] in Ser um or PlasmaOrdered By: Fili Caceres on 07-17-2023 Calcium [Mass/Vol] 9.2 mg/dL Normal 8.6-10.3 [facility] Comment on above: Performed By: #### C K, CBC, HS TROP, CMP #### [address] Capillary blood glucose adeel urement by glucometer (mass/volume)Ordered By: Fili Caceres on 07-17-2023 Glucose [Mass/Vol] 88 mg/dL Normal [facility] Comment on above: Random Glucose Refer ence Range is dependent on time and content of last meal. Glucose of more than 200 mg/dL in a nonstressed, ambulatory subject supports the diagnosis of Diabetes Mellitus. Result Comment: [facility] Glucose Reference Range is dependent on time and content of last meal. Glucose of more than 200 mg/dL in a nonstressed, ambulatory subject supports the diagnosis of Diabetes Mellitus. PERFORMED BY: [place] [address] PATHOLOGIST CURRICULUM SUPERVISOR VANCE OSEGUERA M.D. Performed By: #### G SAWYER #### Point of Care testing , Carbon dioxide, total [Moles /volume] in Serum or PlasmaOrdered By: Fili Caceres on 07-17-2023 CO2 [Moles/Vol] 25.4 mmol/L Normal 21.0-31.0 [facility] Comment on above: Performed By: #### C K, CBC, HS TROP, CMP #### [address] Chloride [Moles/volume] in S rose or PlasmaOrdered By: Fili Caceres on 07-17-2023 Chloride [Moles/Vol] 102 mmol/L Normal 98-107 [facility] Comment on above: Performed By: #### C K, CBC, HS TROP, CMP #### [address] Complete Blood Count Auto Di ffon 07-17-2023 Mean Corpuscular HGB Conc 33.8 g/dL Normal 32.0-35.0 [facility] Comment on above: Performed By: #### C K, CBC, HS TROP, CMP #### [address] Monocytes/100 WBC (Bld) 16.93 % Normal 0.00-20.00 [facility] Comment on above: Performed By: #### C K, CBC, HS TROP, CMP #### [address] NRBC% 0.1 /100{WBC} Normal 0-0.5 [facility] Comment on above: Performed By: #### C K, CBC, HS TROP, CMP #### [address] Comprehensive Metabolic Pane jayec 07-17-2023 Albumin [Mass/Vol] 4.4 g/dL Normal 3.5-5.7 [facility] Comment on above: Performed By: #### C K, CBC, HS TROP, CMP #### [address] Creatinine Clr Calc Pharmacy 118.28 Normal [facility] Comment on above: Result Comment: PERF ORMED BY: [place] [address] PATHOLOGIST CURRICULUM SUPERVISOR VANCE OSEGUERA M.D. Performed By: #### C K, CBC, HS TROP, CMP #### [address] GFR/1.73 sq M.predicted MDRD (S/P/Bld) [Vol rate/Area] mL/min/{1.73_m2} Normal [facility] Comment on above: Performed By: #### C K, CBC, HS TROP, CMP #### [address] Creatine kinase [Enzymatic a ctivity/volume] in Serum or PlasmaOrdered By: Fili Caceres on 07-17-2023 CK [Catalytic activity/Vol] 55 U/L Normal 30-223 [facility] Comment on above: Performed By: #### C K, CBC, HS TROP, CMP #### [address] Creatinine [Mass/volume] in Serum or PlasmaOrdered By: Fili Caceres on 07-17-2023 Creatinine [Mass/Vol] 0.63 mg/dL Normal 0.60-1.20 [facility] Comment on above: Performed By: #### C K, CBC, HS TROP, CMP #### [place] [address] [place] Dipstick and Microscopicon 0 07-17-2023 Appearance (U) Clear Normal Clear [facility] Comment on above: Order Comment: Name Collection Type:: Clean-Voided Midstream Performed By: #### A DDONUAPLUS #### [address] Bacteria,Urine None Seen Normal None Seen [facility] Comment on above: Order Comment: Name Collection Type:: Clean-Voided Midstream Performed By: #### A DDONUAPLUS #### [address] [place] [address] [place] Bilirubin,Urine Negative Normal Negative [facility] Comment on above: Order Comment: Name Collection Type:: Clean-Voided Midstream Performed By: #### A DDONUAPLUS #### [place] [id number] [place] Glucose Ql (U) Normal Normal Normal [facility] Comment on above: Order Comment: Name Collection Type:: Clean-Voided Midstream Performed By: #### A DDONUAPLUS #### [place] [address] [place] Hyaline Casts,Urine 0-8 Normal 0-8 [facility] Comment on above: Order Comment: Name Collection Type:: Clean-Voided Midstream Result Comment: PERF ORMED BY: [place] [address] PATHOLOGIST CURRICULUM SUPERVISOR VANCE OSEGUERA M.D. Performed By: #### A DDONUAPLUS #### [place] [address] [place] Ketones Ql (U) Negative Normal Negative [facility] Comment on above: Order Comment: Name Collection Type:: Clean-Voided Midstream Performed By: #### A DDONUAPLUS #### [place] [address] [place] Leukocyte esterase Test strip Ql (U) 1+ High Negative [facility] Comment on above: Order Comment: Name Collection Type:: Clean-Voided Midstream Performed By: #### A DDONUAPLUS #### [place] [address] [place] Nitrite,Urine Negative Normal Negative [facility] Comment on above: Order Comment: Name Collection Type:: Clean-Voided Midstream Performed By: #### A DDONUAPLUS #### [place] [address] [place] Occult Blood,Urine Negative Normal Negative [facility] Comment on above: Order Comment: Name Collection Type:: Clean-Voided Midstream Result Comment: PERF ORMED BY: [address] [place] [address] PATHOLOGIST CURRICULUM SUPERVISOR VANCE OSEGUERA M.D. Performed By: #### A DDONUAPLUS #### [place] [address] [place] Protein,Urine Negative Normal Negative [facility] Comment on above: Order Comment: Name Collection Type:: Clean-Voided Midstream Performed By: #### A DDONUAPLUS #### [place] [address] [place] RBC,Urine None Seen Normal 0-4 [facility] Comment on above: Order Comment: Name Collection Type:: Clean-Voided Midstream Performed By: #### A DDONUAPLUS #### [place] [address] [place] Specificy [place],Urine 1.016 Normal 1.001-1.030 [facility] Comment on above: Order Comment: Name Collection Type:: Clean-Voided Midstream Performed By: #### A DDONUAPLUS #### [place] [address] [place] Squamous Epithelial Cell,Urine 3-4 High 0-2 [facility] Comment on above: Order Comment: Name Collection Type:: Clean-Voided Midstream Performed By: #### A DDONUAPLUS #### [place] [address] [place] Urobilinogen,Urine Normal Normal Normal [facility] Comment on above: Order Comment: Name Collection Type:: Clean-Voided Midstream Performed By: #### A DDONUAPLUS #### [place] [address] [place] WBC,Urine 1-2 Normal 0-4 [facility] Comment on above: Order Comment: Name Collection Type:: Clean-Voided Midstream Performed By: #### A DDONUAPLUS #### [place] [address] [place] ECG 12 lead ECGon 07-17-2023 ECG 12 lead ECG [facility] [place] [address] [place] [address] Electrocardiograph Report Signed Patient: Zuleyma Khan MR#: [id number] : 2005 Acct:[id number] Age/Sex: 18 / F ADM Date: 07/17/23 Loc: ER Room: Type: [facility] ER Attending Dr: Ordering Provider: [...] Rightward axis Confirmed by Santi BROWN DO ([id number]) on 07/17/2023 1:21:27 PM Referred By: Electronically Signed By:Santi BROWN DO Transcribed By: MUS Signed By Santi Brown DO 0 07/17/23 1321 Normal [facility] Erythrocyte distribution wid th [Ratio] by Automated countOrdered By: Fili Caceres on 07-17-2023 Erythrocyte distribution width (RBC) [Ratio] 14.8 % Normal 11.9-15.3 [facility] Comment on above: Performed By: #### C K, CBC, HS TROP, CMP #### [facility] [address] [place] [address] [place] Erythrocytes [#/volume] in B lood by Automated countOrdered By: Fili Caceres on 07-17-2023 RBC (Bld) [#/Vol] 4.43 10*6/uL Normal 3.60-5.00 [facility] Comment on above: Performed By: #### C K, CBC, HS TROP, CMP #### [facility] [address] [place] [id number] [place] Glucose [Mass/volume] in Ser um or PlasmaOrdered By: Fili Caceres on 07-17-2023 Glucose [Mass/Vol] 59 mg/dL Low 70-100 [facility] Comment on above: ADA recommended refe rence rangeRandom Glucose Reference Range is dependent on time and content of last meal. Glucose of more than 200 mg/dL in a nonstressed, ambulatory subject supports the diagnosis of Diabetes Mellitus. Result Comment: [facility] Glucose Reference Range is dependent on time and content of last meal. Glucose of more than 200 mg/dL in a nonstressed, ambulatory subject supports the diagnosis of Diabetes Mellitus. ADA recommended reference range Performed By: #### C K, CBC, HS TROP, CMP #### [facility] [address] Hematocrit [Volume Fraction] of Blood by Automated countOrdered By: Fili Caceres on 07-17-2023 Hematocrit (Bld) [Volume fraction] 37.8 % Normal 34.0-46.4 [facility] Comment on above: Performed By: #### C K, CBC, HS TROP, CMP #### [facility] [address] Hemoglobin [Mass/volume] in BloodOrdered By: Fili Caceres on 07-17-2023 Hemoglobin (Bld) [Mass/Vol] 12.8 g/dL Normal 11.8-15.4 [facility] Comment on above: Performed By: #### C K, CBC, HS TROP, CMP #### [facility] [address] Ketones Auto test strip (U) [Mass/Vol]Ordered By: Fili Caceres on 07-17-2023 Ketones (U) [Mass/Vol] Negative Negative [facility] - UrinalysisOrder ed By: Fili Caceres on 07-17-2023 Hyaline casts LM Ql (Urine sed) 0-8 [LPF] 0-8 [facility] Leukocytes [#/volume] correc luis f for nucleated erythrocytes in Blood by Automated counOrdered By: Fili Caceres on 07-17-2023 WBC corrected for nucl RBC Auto (Bld) [#/Vol] 8.8 10*3/uL 3.8-11.6 [facility] Leukocytes [#/volume] in Blo od by Automated countOrdered By: Fili Caceres on 07-17-2023 WBC (Bld) [#/Vol] 8.8 10*3/uL Normal 3.8-11.6 [facility] Comment on above: Performed By: #### C K, CBC, HS TROP, CMP #### [facility] [address] Lymphocytes [#/volume] in Bl ood by Automated countOrdered By: Fili Caceres on 07-17-2023 Lymphocytes (Bld) [#/Vol] 1.3 10*3/uL Normal 1.00-4.8 [facility] Comment on above: Performed By: #### C K, CBC, HS TROP, CMP #### [facility] [address] [place] [address] [place] Lymphocytes/100 leukocytes i n Blood by Automated countOrdered By: Fili Caceres on 07-17-2023 Lymphocytes/100 WBC (Bld) 14.8 % Normal . [facility] Comment on above: Performed By: #### C K, CBC, HS TROP, CMP #### [facility] [address] [place] [address] MCH [Entitic mass] by Automa luis f countOrdered By: Fili Caceres on 07-17-2023 MCH (RBC) [Entitic mass] 28.8 pg Normal 24.7-34.3 [facility] Comment on above: Performed By: #### C K, CBC, HS TROP, CMP #### [facility] [address] [place] [address] MCHC Auto (RBC) [Mass/Vol]Or dered By: Fili Caceres on 07-17-2023 MCHC (RBC) [Mass/Vol] 33.8 g/dL 32.0-35.0 [facility] MCV [Entitic volume] by Auto mated countOrdered By: Fili Caceres on 07-17-2023 MCV (RBC) [Entitic vol] 85.4 fL Normal 80-100 [facility] Comment on above: Performed By: #### C K, CBC, HS TROP, CMP #### [place] [address] [place] Monocyte distribution width [Entitic volume] in Blood by AutomatedOrdered By: Fili Caceres on 07-17-2023 Monocyte distribution width Auto (Bld) [Entitic vol] 16.93 % 0.00-20.00 [facility] Neutrophils [#/volume] in Bl ood by Automated countOrdered By: Fili Caceres on 07-17-2023 Neutrophils (Bld) [#/Vol] 6.7 10*3/uL Normal 1.8-7.7 [facility] Comment on above: Performed By: #### C K, CBC, HS TROP, CMP #### [facility] [address] Nitrite Test strip Ql (U)Ord ered By: Fili Caceres on 07-17-2023 Nitrite Ql (U) Negative Negative [facility] No Panel InformationOrdered By: Fili Caceres on 07-17-2023 Estimated GFR (CKD-EPI) > 60.0 mL/Min [facility] Creatinine Clearance (Chem 118.28 [facility] Nucleated erythrocytes [Pres ence] in Blood by Automated countOrdered By: Fili Caceres on 07-17-2023 Nucleated RBC Auto Ql (Bld) 0.1 /100{WBC} 0-0.5 [facility] Platelet mean volume [Entiti c volume] in Blood by Automated countOrdered By: Fili Caceres on 07-17-2023 Platelet mean volume (Bld) [Entitic vol] 9.3 fL Normal 6.3-10.7 [facility] Comment on above: Performed By: #### C K, CBC, HS TROP, CMP #### [facility] [address] Platelets [#/volume] in Bloo d by Automated countOrdered By: Fili Caceres on 07-17-2023 Platelets (Bld) [#/Vol] 234 10*3/uL Normal 150-450 [facility] Comment on above: Performed By: #### C K, CBC, HS TROP, CMP #### [facility] [address] Potassium [Moles/volume] in Serum or PlasmaOrdered By: Fili Caceres on 07-17-2023 Potassium [Moles/Vol] 3.6 mmol/L Normal 3.5-5.1 [facility] Comment on above: Performed By: #### C K, CBC, HS TROP, CMP #### [address] Protein Auto test strip (U) [Mass/Vol]Ordered By: Fili Caceres on 07-17-2023 Protein (U) [Mass/Vol] Negative Negative [facility] Protein [Mass/volume] in Ser um or PlasmaOrdered By: Fili Caceres on 07-17-2023 Protein [Mass/Vol] 7.0 g/dL Normal 6.4-8.9 [facility] Comment on above: Performed By: #### C K, CBC, HS TROP, CMP #### [address] Serum globulin measurement b y calculation (mass/volume)Ordered By: Fili Caceres on 07-17-2023 Globulin (S) [Mass/Vol] 2.6 g/dL Normal [facility] Comment on above: Performed By: #### C K, CBC, HS TROP, CMP #### [address] Serum or plasma albumin/glob ulin mass ratioOrdered By: Fili Caceres on 07-17-2023 Albumin/Globulin [Mass ratio] 1.7 {ratio} Normal [facility] Comment on above: Performed By: #### C K, CBC, HS TROP, CMP #### [address] Serum or plasma anion gap de terminationOrdered By: Fili Caceres on 07-17-2023 Anion gap [Moles/Vol] 10.2 mmol/L Normal 6.0-15.0 [facility] Comment on above: Performed By: #### C K, CBC, HS TROP, CMP #### [address] Sodium [Moles/volume] in Ser um or PlasmaOrdered By: Fili Caceres on 07-17-2023 Sodium [Moles/Vol] 134 mmol/L Low 136-145 [facility] Comment on above: Performed By: #### C K, CBC, HS TROP, CMP #### [facility] [address] Specific gravity Auto test s trip (U) [Rel density]Ordered By: Fili Caceres on 07-17-2023 Specific gravity (U) [Rel density] 1.016 1.001-1.030 [facility] Squamous epithelial cells de tection in urine sediment by light microscopyOrdered By: Fili Caceres on 07-17-2023 Epithelial cells.squamous LM Ql (Urine sed) 3-4 [HPF] 0-2 [facility] Troponin I High Sensitivityo n 07-17-2023 Troponin I High Sensitivity < 2.3 Normal 0.0-15.0 [facility] Comment on above: Result Comment: PERF ORMED BY: [place] [address] PATHOLOGIST CURRICULUM SUPERVISOR VANCE OSEGUERA M.D. Performed By: #### C K, CBC, HS TROP, CMP #### [facility] [address] [place] [address] Troponin I.cardiac [Mass/vol ume] in Serum or Plasma by Detection limit <= 0.01 ng/Ordered By: Fili Caceres on 07-17-2023 Troponin I.cardiac DL <= 0.01 ng/mL [Mass/Vol] < 2.3 pg/mL 0.0-15.0 [facility] Urea nitrogen [Mass/volume] in Serum or PlasmaOrdered By: Fili Caceres on 07-17-2023 Urea nitrogen [Mass/Vol] 10 mg/dL Normal 7-25 [facility] Comment on above: Performed By: #### C K, CBC, HS TROP, CMP #### [facility] [address] [place] [address] Urine bacteria detection by automated methodOrdered By: Fili Caceres on 07-17-2023 Bacteria Auto Ql (U) None seen None Seen [facility] Urine clarity by refractomet ry automatedOrdered By: Fili Caceres on 07-17-2023 Clarity Refractometry automated (U) Clear Clear [facility] Urine glucose measurement by automated test strip (mass/volume)Ordered By: Fili Caceres on 04-24-2024 Glucose Auto test strip (U) [Mass/Vol] Normal mg/dL Normal [facility] Urine hemoglobin detection b y automated test stripOrdered By: Fili Caceres on 07-17-2023 Hemoglobin Auto test strip Ql (U) Negative Negative [facility] Urine leukocyte esterase det ection by automated test stripOrdered By: Fili Caceres on 07-17-2023 Leukocyte esterase Auto test strip Ql (U) 1+ Negative [facility] Urine pH measurement by auto mated test stripOrdered By: Fili Caceres on 07-17-2023 pH (U) 7.0 [pH] Normal 5.0-9.0 [facility] Comment on above: Order Comment: Name Collection Type:: Clean-Voided Midstream Performed By: #### A DDONUAPLUS #### [address] Urobilinogen Auto test strip (U) [Mass/Vol]Ordered By: Fili Caceres on 07-17-2023 Urobilinogen (U) [Mass/Vol] Normal mg/dL Normal [facility] Vital Signs Date Time Vital Sign Value Performing Clinician Facility 12-31-2023 09:38-0400 Body mass index (BMI) [Ratio] 27.09 kg/m2 Roxana RUSSO Work Phone: [facility] 12-31-2023 09:38-0400 Body weight 71.58 kg Roxana RUSSO Work Phone: [facility] 12-31-2023 09:38-0400 Diastolic blood pressure 60 mm[Hg] Roxana RUSSO Work Phone: [facility] 12-31-2023 09:38-0400 Systolic blood pressure 118 mm[Hg] Roxana RUSSO Work Phone: [facility] 12-24-2023 10:24-0400 Body mass index (BMI) [Ratio] 26.91 kg/m2 Connie Gildardo DO Work Phone: [facility] 12-24-2023 10:24-0400 Body weight 71.12 kg Connie Gildardo DO Work Phone: [facility] 12-24-2023 10:24-0400 Diastolic blood pressure 72 mm[Hg] Connie Gildardo DO Work Phone: [facility] 12-24-2023 10:24-0400 Systolic blood pressure 110 mm[Hg] Connie Gildardo DO Work Phone: [facility] 07-17-2023 12:32-0400 Diastolic blood pressure 73 mm[Hg] MELTER OPERATOR-C Hueneyda Lewisy Work Phone: [facility] 07-17-2023 12:32-0400 Heart rate 83 /min MELTER OPERATOR-C Hue Luby Work Phone: [facility] 07-17-2023 12:32-0400 Respiratory rate 18 /min MELTER OPERATOR-C Hue Luby Work Phone: [facility] 07-17-2023 12:32-0400 SaO2% (BldA) [Mass fraction] 100 % MELTER OPERATOR-C Hue Luby Work Phone: [facility] 07-17-2023 12:32-0400 Systolic blood pressure 118 mm[Hg] MELTER OPERATOR-C Hue Luby Work Phone: [facility] 07-17-2023 10:32-0400 Body height 162.56 cm MELTER OPERATOR-C Hue Luby Work Phone: [facility] 07-17-2023 10:32-0400 Body temperature 98 [degF] MELTER OPERATOR-C Hue Luby Work Phone: [facility] 07-17-2023 10:32-0400 Body weight 52.16 kg MELTER OPERATOR-C Hue Luby Work Phone: [facility] Encounters Encounter Date Encounter Type Care Provider Facility Start: 12-31-2023 End: 12-31-2023 Kevin RUSSO Work Phone: [facility] Start: 12-31-2023 End: 12-31-2023 Kevin RUSSO Work Phone: [facility] Start: 12-31-2023 End: 12-31-2023 ambulatory ROXANA SHEBA Not Available Start: 12-31-2023 End: 12-31-2023 flow sheet Roxana Sheba PA Work Phone: [facility] Comment on above: Third trimester preg mitchell; 38 weeks gestation of Start: 12-24-2023 End: 12-24-2023 Bamboo flowsheet Connie [...] Not Available Start: 12-02-2023 End: 12-02-2023 ambulatory ROXANA SHEBA Not Available Start: 11-14-2023 End: 11-14-2023 ambulatory CONNIE GILDARDO Not Available Start: 10-30-2023 End: 10-30-2023 ambulatory CONNIE GILDARDO Not Available Start: 10-17-2023 End: 10-17-2023 ambulatory ROXANA SHEBA Not Available Start: 09-19-2023 End: 09-19-2023 ambulatory CONNIE GILDARDO Not Available Start: 08-21-2023 End: 08-21-2023 ambulatory HUE SOLOMON Not Available Start: 08-21-2023 End: 08-21-2023 ambulatory PENOLA P BELTRAN Not Available Start: 08-06-2023 End: 08-06-2023 ambulatory PENOLA P BELTRAN Not Available Start: 07-22-2023 End: 07-22-2023 ambulatory PENOLA P BELTRAN Not Available Start: 07-17-2023 End: 07-17-2023 Emergency department patient visit MELTER OPERATOR-Kirstin Solomon Work Phone: [facility] [...] 12-24-2017 Patient encounter procedure Shahnaz Keegan [facility] Work Phone: Start: 05-21-2017 Patient encounter procedure Shahnaz Keegan [facility] Work Phone: Start: 05-21-2017 Ambulatory Shahnaz Rach Keegan Faci lity:[phone] Start: 02-19-2017 Patient encounter procedure Shahnaz Keegan [facility] Work Phone: Start: 02-19-2017 Ambulatory Shahnaz Rach Keegan Faci lity:[phone] Start: 01-14-2017 Patient encounter procedure Shahnaz Keegan [facility] Work Phone: Procedures Date Procedure Procedure Detail Performing Clinician Start: 12-31-2023 Urnls dip stick/tabl et rgnt non-auto w/o micrscp Roxana RUSSO Work Phone: Start: 12-24-2023 Urnls dip stick/tabl et rgnt non-auto w/o micrscp Connie Ewing DO Work Phone: History of Bronchosc opy (Diagnostic) Shahnaz Keegan Plan of Treatment Date Care Activity Detail Author Start: 11-24-2023 Influenza vaccination Influenza Vacc ine (#1) [facility] Patient Education Syncope (faint ing) Low Blood Sugar, Adult ED [facility] Work Phone: Patient referral [facility] Work Phone: Immunizations Immunization Date Immunization Notes Care Provider Yuli antony 12-04-2021 meningococcal polysaccharide (groups A, C, Y and W-135) diphtheria toxoid conjugate vaccine (MCV4P) [facility] DO Work Phone: [facility] 01-13-2019 Human Papillomavirus 9-valent vaccine; Translations: [HPV, Human Papillomavirus 9-valent vaccine] [place] Keegan [facility] Work Phone: 01-12-2016 human papilloma viru s vaccine, quadrivalent Shahnaz Keegan [facility] Work Phone: 01-12-2016 Human Papillomavirus 9-valent vaccine [facility] DO Work Phone: [facility] 01-12-2016 meningococcal polysaccharide (groups A, C, Y and W-135) diphtheria toxoid conjugate vaccine (MCV4P) Shahnaz Keegan [facility] Work Phone: 01-12-2016 tetanus toxoid, redu shoshana diphtheria toxoid, and acellular pertussis vaccine, adsorbed Shahnaz Keegan [facility] Work Phone: 01-10-2010 influenza, seasonal, injectable Shahnaz Keegan [facility] Work Phone: 01-10-2010 influenza, seasonal, injectable, preservative free [facility] DO Work Phone: [facility] 01-10-2010 influenza virus vaccine, unspecified formulation [facility] DO Work Phone: [facility] 08-09-2009 diphtheria, tetanus toxoids and acellular pertussis vaccine Shahnaz Keegan [facility] 08-09-2009 measles, mumps and rubella virus vaccine Shahnaz Keegan [facility] 08-09-2009 poliovirus vaccine, inactivated Shahnaz Keegan [facility] 08-09-2009 varicella virus vaccine Shahnaz Vac ca [facility] 03-21-2009 novel [id number], injectable Connie Gildardo DO Work Phone: [facility] 03-21-2009 novel [id number], preservative-free, injectable Connie Gildardo DO Work Phone: [facility] 02-10-2009 hepatitis A vaccine, pediatric/adolescent dosage, 2 dose schedule Connie Gildardo DO Work Phone: [facility] 02-10-2009 hepatitis A vaccine, unspecified formulation Shahnaz Keegan [facility] Work Phone: 02-10-2009 influenza, seasonal, injectable Shahnaz Keegan [facility] Work Phone: 02-10-2009 novel [id number], injectable Connie Gildardo DO Work Phone: [facility] 02-10-2009 novel [id number], preservative-free, injectable Connie Gildardo DO Work Phone: [facility] 07-27-2008 hepatitis A vaccine, pediatric/adolescent dosage, 2 dose schedule Connie Gildardo DO Work Phone: [facility] 07-23-2008 hepatitis A vaccine, unspecified formulation Shahnaz Keegan [facility] Work Phone: 12-26-2007 influenza, seasonal, injectable Shahnaz Keegan [facility] Work Phone: 12-26-2007 influenza, seasonal, injectable, preservative free Connie Gildardo DO Work Phone: [facility] 01-21-2007 influenza, seasonal, injectable Shahnaz Keegan [facility] Work Phone: 01-21-2007 influenza, seasonal, injectable, preservative free Connie Gildardo DO Work Phone: [facility] 02-05-2006 influenza, seasonal, injectable Shahnaz Keegan [facility] Work Phone: 02-05-2006 influenza, seasonal, injectable, preservative free [facility] DO Work Phone: [facility] 11-02-2005 diphtheria, tetanus toxoids and acellular pertussis vaccine Shahnaz Keegan [facility] 11-02-2005 haemophilus influenz ae type b vaccine, PRP-OMP conjugate Shahnaz Keegan [facility] Work Phone: 11-02-2005 haemophilus influenz ae type b vaccine, PRP-T conjugate [facility] DO Work Phone: [facility] 11-02-2005 pneumococcal conjuga te vaccine, 7 valent Shahnaz Keegan [facility] 07-10-2005 measles, mumps and rubella virus vaccine Shahnaz Keegan [facility] 07-10-2005 varicella virus vaccine Shahnaz Vac ca [facility] 01-24-2005 diphtheria, tetanus toxoids and acellular pertussis vaccine Shahnaz Keegan [facility] Work Phone: 01-24-2005 DTaP-hepatitis B and poliovirus vaccine [facility] DO Work Phone: [facility] 01-24-2005 haemophilus influenz ae type b vaccine, PRP-OMP conjugate Shahnaz Keegan [facility] Work Phone: 01-24-2005 haemophilus influenz ae type b vaccine, PRP-T conjugate [facility] DO Work Phone: [facility] 01-24-2005 hepatitis B vaccine, adult dosage Shahnaz Keegan [facility] Work Phone: 01-24-2005 pneumococcal conjuga te vaccine, 7 valent Shahnaz Keegan [facility] 01-24-2005 poliovirus vaccine, inactivated Shahnaz Keegan [facility] Work Phone: 2004 diphtheria, tetanus toxoids and acellular pertussis vaccine Shahnaz Keegan [facility] Work Phone: 2004 DTaP-hepatitis B and poliovirus vaccine Connie Gildardo DO Work Phone: [facility] 2004 haemophilus influenz ae type b vaccine, PRP-OMP conjugate Shahnaz Ke[facility] Work Phone: 2004 haemophilus influenz ae type b vaccine, PRP-T conjugate Connie Gildardo DO Work Phone: [facility] 2004 hepatitis B vaccine, pediatric or pediatric/adolescent dosage Connie Gildardo DO Work Phone: [facility] 2004 pneumococcal conjuga te vaccine, 7 valent Shahnaz Keegan [facility] 2004 poliovirus vaccine, inactivated Shahnaz Keegan [facility] Work Phone: 2004 diphtheria, tetanus toxoids and acellular pertussis vaccine Shahnaz Keegan [facility] Work Phone: 2004 DTaP-hepatitis B and poliovirus vaccine [facility] Gildardo DO Work Phone: [facility] 2004 haemophilus influenz ae type b vaccine, PRP-OMP conjugate Shahnaz Ke[facility] Work Phone: 2004 haemophilus influenz ae type b vaccine, PRP-T conjugate Connie Gildardo DO Work Phone: [facility] 2004 hepatitis B vaccine, adult dosage Shahnaz Ke[facility] Work Phone: 2004 hepatitis B vaccine, pediatric or pediatric/adolescent dosage Connie Gildardo DO Work Phone: [facility] 2004 pneumococcal conjuga te vaccine, 7 valent Shahnaz Keegan [facility] 2004 poliovirus vaccine, inactivated Shahnaz [facility] Work Phone: 2004 hepatitis B vaccine, adult dosage Shahnaz Keegan [facility] Work Phone: 2004 hepatitis B vaccine, pediatric or pediatric/adolescent dosage Connie Ewing DO Work Phone: [facility] Payers Date Payer Category Payer Self-pay 2022 Unknown [employer] [id number] 2022-Present [address] [place] [address] [id number] 2022 Unknown [id number] 2004 Unknown [id number] [id number] 2004 Unknown [id number] 2.16.840.1.394717.3.579.2.1258 2004 Unknown [id number] 2.16.840.1.499608.3.579.2.1258 2004 Unknown [id number] 2.16.840.1.666432.3.579.2.1258 2004 Unknown [id number] 2.16.840.1.427679.3.579.2.1258 2004 Unknown [id number] 2.16.840.1.238328.3.579.2.9 2004 Unknown [id number] 2.16.840.1.263727.3.579.2.1258 2004 Unknown [id number] 2.16.840.1.569151.3.579.2.1258 2004 Unknown [id number] 2.16.840.1.973053.3.579.2.1258 2004 Unknown [id number] 2.16.840.1.794049.3.579.2.1258 2004 Unknown [id number] 2.16.840.1.350437.3.579.2.1258 2004 Unknown [id number] 2.16.840.1.758660.3.579.2.9 2004 Unknown [id number] 2.16.840.1.150588.3.579.2.9 2004 Unknown [id number] 2.16.840.1.590224.3.579.2.9 2004 Unknown [id number] 2.16.840.1.355917.3.579.2.1258 2004 Unknown [id number] 2.16.840.1.991888.3.579.2.9 2004 Unknown [id number] 2.16.840.1.725063.3.579.2.1258 2004 Unknown [id number] 2.16.840.1.638918.3.579.2.9 2004 Unknown [id number] 2.16.840.1.998775.3.579.2.9 2004 Unknown [id number] 2.16.840.1.524456.3.579.2.9 2004 Unknown [id number] 2.16.840.1.507774.3.579.2.1259 Unknown [id number] 2.16.840.1.601172.3.579.2.531 Social History Date Type Detail Facility Assertion Unknown if ever smoked [facility] Work Phone: Start: 04-22-2023 [facility] Start: 09-03-2022 End: 07-17-2023 Tobacco smoking status NHIS Never smoked tobacco (finding) [facility] Start: 2004 Sex Assigned At Female F [facility] Start: 09-03-2022 Tobacco use and exposure Smokeless tobacco non-user [facility] Start: 12-02-2023 End: 12-31-2023 Alcoholic beverage intake Current drinker of alcohol (finding) [facility] Start: 12-20-2022 End: 12-02-2023 Alcoholic beverage intake [facility] Start: 12-20-2022 End: 08-21-2023 Humiliation, Afraid, Rape, and Kick questionnaire [HARK] [facility] Within the last year , have you been afraid of your partner or ex-partner? No [facility] Do you belong to any clubs or organizations such as scientology groups, unions, fraternal or athletic groups, or [...] not documented Disease [facility] Work Phone: History of Present illness Narrative 12-31-2023 RAFAELA Thurman - 12/31/2023 9:20 AM EDT Note Date & Type Note Facility 12-31-2023 History of Presen t illness Narrative Reason [...] Exam Constitutional: Appearance: Normal appearance. She is well-developed and normal weight. HENT: Head: Normocephalic. Cardiovascular: Rate and Rhythm: Normal rate and regular rhythm. Pulses: Normal pulses. Pulmonary: Effort: Pulmonary effort is normal. Breath sounds: Normal breath sounds. Abdominal: General: Bowel sounds are normal. There is no distension. Palpations: Abdomen is soft. Tenderness: There is no abdominal tenderness. There is no guarding or rebound. Musculoskeletal: General: No swelling. Normal range of motion. Right lower leg: No edema. Left lower leg: No edema. Neurological: General: No focal deficit present. Mental Status: She is alert and oriented to person, place, and time. Skin: General: Skin is warm and dry. Psychiatric: Mood and Affect: Mood normal. Behavior: Behavior normal. Thought Content: Thought content normal. Judgment: Judgment normal. Vitals and nursing note reviewed. Exam conducted with a nuclear medicine technician present. Vitals: Estimated body mass index is 27.09 kg/m as calculated from the following: Height as of 08/21/23: 5' 4 . Weight as of this encounter: 157 lb 12.8 oz. BP: 118/60 Patient's last menstrual period was 03/24/2023. ASSESSMENT & PLAN ICD-10-CM 1. Third trimester Z34.93 POCT urinalysis dipstick manually resulted 2. 38 weeks gestation of Z3A.38 POCT urinalysis dipstick manually resulted Return OB: Patient presents today for a routine obstetrics appointment. Patient is currently 38w1d . Patient states she is doing well but has complaints of being tired due to current . Patient has verbalizes frequent movement. labor precautions was discussed/given and patient was instructed to perform kick counts three times a day. Orders Placed This Encounter Procedures POCT urinalysis dipstick manually resulted Follow Up: Patient is to return to office in 2 week for routine OB appointment. Documented by Laurita Rico LPN on behalf of: RAFAELA Thurman documented in this encounter [facility] History of Present illness Narrative 12-24-2023 Natty [...] Diagnosis Date ADHD (attention deficit hyperactivity disorder) ([facility]) Anxiety Asthma ([facility]) Closed fracture nose 04/24/2023 Fracture Social History [...] nursing note reviewed. Exam conducted with a nuclear medicine technician present. Vitals: Estimated body mass index is [...] Facility Evaluation note No assessment information availa [facility] Work Phone: Evaluation note Note Date & Type Note Facility Evaluation note Diagnosis Third trimester state, incidental 37 weeks gestation of documented in this encounter [facility] Evaluation note Note Date & Type Note Facility Evaluation note Diagnosis Third trimester state, incidental 38 weeks gestation of documented in this encounter [facility] Summary Purpose Family History Unknown Family [...] diabetes alix holman(V18.0, Z83.3) Status:Active Advance Directives Advance Directive Response Recorded Date/ Time Advance Directives No August 09 6:47pm Chief Complaint and Reason for Visit Chief Complaint passed out Additional Source Comments INFORMATION SOURCE (unrecogn ized section and content) DATE CREATED AUTHOR 09/13/2017 [facility] DATE CREATED AUTHOR AUTHOR'S ORGANIZ ATION 08/28/2023 [facility] DATE CREATED AUTHOR AUTHOR'S ORGANIZ ATION 01/01/2024 [facility] EPIC Care Teams (unrecognized sec tion and content) Team Status: Active Member Role Status Dates RIMA Martínez Primary Care Provider Active Team Status: Inactive Member Role Status Dates RIMA Martínez Primary Care Provider Active S tart: July 17, 2023 End: July 17, 2023 Fili Caceres PA-C Emergency Provider Active Start: July 17, 2023 End: July 17, 2023 Lounge Car Attendant Relationship Specialty Start Date End Date Danielito Pickett DO [address] [facility] [address] [place] [address] PCP - General Family Medicine 08/13/22 Lounge Car Attendant Relationship Specialty Start Date End Date Danielito Pickett DO [address] [facility] [address] [place] [address] PCP - General Family Medicine 08/13/22 Goals [...] BE BASED ON THE PRIMARY CLINICAL RECORDS. [facility] [employer] [facility]. provides no warranty or guarantee of the accuracy or completeness of information in this document.
[2024-01-08 05:52] LABS: Hematocrit 37.4 % (36.0-48.0); Hemoglobin 12.5 g/dL (12.0-16.0); Mean Corpuscular HGB Conc 33.4 g/dL (29.9-35.2); Mean Corpuscular Hemoglobin 29.4 pg (26.7-34.0); Mean Platelet Volume 12.4 fL (9.5-13.5); Platelet Count 210 10^3/uL (150-450); Red Blood Count 4.25 10^6/uL (4.20-5.40); Red Cell Distribution Width 12.7 % (11.0-15.0); White Blood Count 9.7 10^3/uL (4.0-11.0)
[2024-01-08] MEDS: OXYTOCIN/0.9 % SODIUM CHLORIDE 10 UNITS/500 ML PLAST..BAG 6 UNIT IV (06:05)
[2024-01-08] MEDS: 0.9 % SODIUM CHLORIDE 1,000 ML 125 ML IV ×2 (06:07→13:10)
[2024-01-08 06:19] LABS: Amphetamine Screen Urine NEGATIVE (NEGATIVE); Barbiturates Screen Urine NEGATIVE (NEGATIVE); Benzodiazepines Screen Urine NEGATIVE (NEGATIVE); Buprenorphine Screen Urine NEGATIVE (NEGATIVE); Cannabinoid Screen Urine NEGATIVE (NEGATIVE); Cocaine Screen Urine NEGATIVE (NEGATIVE); Methadone Screen Urine NEGATIVE (NEGATIVE); Methamphetamines Screen Urine NEGATIVE (NEGATIVE); Opiate Screen Urine NEGATIVE (NEGATIVE); Oxycodone Screen Urine NEGATIVE (NEGATIVE); Phencyclidine Screen Urine NEGATIVE (NEGATIVE); Tricyclic Antidepressant Urine NEGATIVE (NEGATIVE)
[2024-01-08] MEDS: NALBUPHINE HCL 10 MG/ML AMPULE IV (10:53)
[2024-01-08] MEDS: ROPIVACAINE HCL/PF 400 MG/200 ML PREMIX 6 MG EPIDURAL (13:10)
[2024-01-08] MEDS: ONDANSETRON PF 4 MG/2 ML VIAL IV (13:34)
[2024-01-08] MEDS: OXYTOCIN/0.9 % SODIUM CHLORIDE 20 UNITS/1,000 ML PLAST..BAG 125 UNIT IV (15:40)
--- NOTE | 2024-01-08 15:51 | PM.OBPRCVD ---
Procedure Intrapartal events: None Induction method: per pitocin protocol Delivery augmentation: rupture of membranes and pitocin Delivery monitor: external FHT and external uterine Route of delivery: Episiotomy Description: midline L&D Laceration Description: perineal - 2nd degree Delivery repair: Vicryl Estimated blood loss (mL): 350 Anesthesia type: Epidural Disposition: floor Infant Delivery date: 01/29/24 Gender: female presentation: vertex Placental delivery description: Spontaneous cord description: 3 Vessels
[2024-01-08] MEDS: BENZOCAINE/MENTHOL 85 GRAM SPRAY BOTTLE 1 APPLIC TOPICAL (17:59)
[2024-01-08] MEDS: GLYCERIN/WITCH HAZEL PADS 1 PAD TOPICAL (17:59)
[2024-01-08] MEDS: IBUPROFEN 600 MG TABLET PO (19:06)
[2024-01-09] VITALS (7 sets, daily range): BP systolic 109–124; BP diastolic 54–79; PULSE 74–116; TEMP 36.3–36.8
[2024-01-09] MEDS: IBUPROFEN 600 MG TABLET PO ×3 (04:51→18:03)
[2024-01-09 06:25] LABS: Basophils Absolute Auto 0.1 10^3/uL (0.0-0.1); Basophils Percent Auto 0.5 % (0.2-2.0); Eosinophils Absolute Auto 0.1 10^3/uL (0.0-0.7); Eosinophils Percent Auto 0.5 % (0.9-7.0); Hematocrit 28.8 % (36.0-48.0); Hemoglobin 9.5 g/dL (12.0-16.0); Immature Granulocytes Abs Auto 0.09 10^3/uL (0.00-0.03); Immature Granulocytes Pct Auto 0.7 % (0.0-0.5); Lymphocytes Absolute Auto 2.2 10^3/uL (1.2-3.8); Lymphocytes Percent Auto 16.7 % (20.5-60.0); Mean Corpuscular Hemoglobin 29.3 pg (26.7-34.0); Mean Corpuscular Volume 88.9 fL (81.0-99.0); Mean Platelet Volume 11.8 fL (9.5-13.5); Monocytes Absolute Auto 1.2 10^3/uL (0.3-0.8); Monocytes Percent Auto 9.2 % (1.7-12.0); Neutrophils Absolute Auto 9.3 10^3/uL (1.4-6.5); Neutrophils Percent Auto 72.4 % (43.0-75.0); Platelet Count 171 10^3/uL (150-450); Red Blood Count 3.24 10^6/uL (4.20-5.40); Red Cell Distribution Width 12.8 % (11.0-15.0); White Blood Count 12.9 10^3/uL (4.0-11.0)
--- NOTE | 2024-01-09 07:41 | P.OBPN_ITS ---
OB - PN: Subj Subjective Patient comments: no complaints and pain well controlled [place] status: doing well Exam Constitutional Vital Signs, click to edit/add: Last Vital Signs Temp 97.9 F 01/08/24 20:36 Pulse 74 01/09/24 00:29 Resp 14 01/09/24 00:00 BP 124/79 01/09/24 00:29 O2 Del Method Room Air 01/09/24 00:00 Documenting provider has reviewed patient's vital signs: yes Common normals: no apparent distress Respiratory Common normals: clear to auscultation bilaterally Cardio Common normals: regular rate and regular rhythm GI Common normals: Normal to inspection, nondistended, normoactive bowel sounds present Extremity Common normals: no clubbing, cyanosis or edema Results Labs Labs: Short CBC 01/09/24 Range/Units 06:08 WBC 12.9 H (4.0-11.0) 10^3/uL Hgb 9.5 L (12.0-16.0) g/dL Hct 28.8 L (36.0-48.0) % Plt Count 171 (150-450) 10^3/uL OB - PN: A/P Plan - Vaginal Delivery day: 1 Plan: routine care Time Spent with Patient Time: Total time spent is greater than 50% in coordination of care (as documented) at patient's floor/unit and/or counseling patient: Total time spent with greater than 50% in coordination of care (as documented) at patient's floor/unit and/or counseling patient: less than 15 minutes
[2024-01-09] MEDS: DOCUSATE SODIUM 100 MG CAPSULE PO ×2 (11:07→23:07)
[2024-01-09] MEDS: ACETAMINOPHEN 325 MG TABLET 650 MG PO (23:07)
[2024-01-10] MEDS: IBUPROFEN 600 MG TABLET PO ×2 (03:19→08:35)
--- NOTE | 2024-01-10 07:49 | P.OBPN_ITS ---
OB - PN: Subj Subjective Patient comments: no complaints and pain well controlled [place] status: doing well Exam Constitutional Vital Signs, click to edit/add: Last Vital Signs Temp 98.2 F 01/09/24 22:15 Pulse 116 H 01/09/24 22:17 Resp 14 01/09/24 22:50 BP 120/69 01/09/24 22:17 O2 Del Method Room Air 01/09/24 22:50 Documenting provider has reviewed patient's vital signs: yes Common normals: no apparent distress Respiratory Common normals: normal respiratory effort and clear to auscultation bilaterally Cardio Common normals: regular rate and regular rhythm GI Common normals: Normal to inspection, nondistended, normoactive bowel sounds present Extremity Common normals: no clubbing, cyanosis or edema and no calf tenderness OB - PN: A/P Plan - Vaginal Delivery day: 2 Plan: routine care, discharge home and follow up 6 weeks Time Spent with Patient Time: Total time spent is greater than 50% in coordination of care (as documented) at patient's floor/unit and/or counseling patient: Total time spent with greater than 50% in coordination of care (as documented) at patient's floor/unit and/or counseling patient: less than 15 minutes
[2024-01-10 08:30] VITALS: TEMP 36.7
[2024-01-10 08:32] VITALS: BP 112/66; PULSE 83
[2024-01-10] MEDS: DOCUSATE SODIUM 100 MG CAPSULE PO (08:36)
== END 2024-01-10 14:00 | disposition home or self-care (01) | DRG 807 ==
PROVIDERS: Admitting Provider Obstetrics & Gynecology; Visit Provider Obstetrics & Gynecology
DX: O70.1 Second degree perineal laceration during delivery (principal); Z37.0 Single live birth; Z3A.39 39 weeks gestation of pregnancy
CPT/HCPCS: 36415; 59050; 59410; 80307; 85025; 85027; 86850; 86900; 86901; J2300; J2405; J2795